=== PATIENT | male | born 1960 | race Two or more races ===

== ENCOUNTER 2021-08-03 09:31 | Outpatient (REF) | payer MEDICARE, MEDICAID, SELFPAY ==
--- NOTE | ~2021-08-03 | XR_ITS ---
EXAMINATION: XR chest 2V CLINICAL INFORMATION: Reason for Exam HX OF COPD, RLL LUNG COMPARISON: Chest radiograph 03/01/2015 TECHNIQUE: 2 views of the chest XR/XR chest 2V FINDINGS/IMPRESSION: * Clear lungs. * No pneumothorax or pleural effusion. * Normal cardiomediastinal silhouette.
== END 2021-08-03 09:32 | disposition home or self-care (01) ==
LOC: HO.XRAY 09:31
PROVIDERS: PCP Registered Nurse Community Health; Visit Provider Registered Nurse Community Health
DX: J44.9 Chronic obstructive pulmonary disease, unspecified (principal)
CPT/HCPCS: 71046

== ENCOUNTER 2021-10-26 12:34 | Outpatient (REF) | payer MEDICARE, MEDICAID, SELFPAY ==
--- NOTE | 2021-10-26 13:45 | PFT_ITS ---
INDICATION: COPD. SPIROMETRY: FEV1 to FVC 75% with an FEV1 of 2.04 L which is 88% predicted and an FVC of 4.06 L, which is 91% predicted. No significant response to bronchodilators noted. Maximum voluntary ventilation could not be achieved. LUNG VOLUMES: Total lung capacity 92% predicted. DIFFUSION CAPACITY: DLCO 75% predicted. COMPARISONS: None. INTERPRETATION: No obstructive nor restrictive ventilatory defects identified. No significant response to bronchodilators noted. Normal total lung capacity. Normal residual volume and the patient does have a mild isolated diffusion impairment should correct for hemoglobin. If asthma is in the differential, methacholine challenge may be helpful in assessing for hyper-reactive airways, otherwise clinical correlation warranted. Homero Mooney MD MR/MODL / [id number]
== END 2021-10-26 12:35 | disposition home or self-care (01) ==
LOC: HO.RESP 12:34
PROVIDERS: PCP Registered Nurse Community Health; Visit Provider Registered Nurse Community Health
DX: J44.9 Chronic obstructive pulmonary disease, unspecified (principal)
CPT/HCPCS: 94060; 94727; 94729

== ENCOUNTER 2023-05-03 08:19 | Outpatient (REF) | payer MEDICARE, MEDICAID, SELFPAY ==
[2023-05-03 12:15] LABS: Alanine Aminotransferase 17 U/L (0-40); Albumin Level 4.3 g/dL (3.5-5.0); Alkaline Phosphatase 73 U/L (39-117); Anion Gap 10 (12-20); Aspartate Amino Transferase 16 U/L (5-37); Bilirubin Total 0.4 mg/dL (0.0-1.0); Blood Urea Nitrogen 17 mg/dL (9-16); Calcium 9.6 mg/dL (8.4-10.2); Carbon Dioxide 24 mmol/L (22-29); Chloride 110 mmol/L (96-108); Cholesterol 176 mg/dL (<200); Estimated Glomerular Filt Rate > 60; Glucose Random 88 mg/dL (60-115); HDL Cholesterol 36 mg/dL (>40); LDL Cholesterol Calculated 120 mg/dL (<100); Potassium 4.2 mmol/L (3.3-5.1); Sodium 140 mmol/L (135-145); Total Protein 7.8 g/dL (6.5-8.0); Triglycerides 101 mg/dL (<150); ~Hepatitis C Antibody Reactive (Nonreactive)
[2023-05-03 12:16] LABS: TSH reflex Free T4 2.18 uIU/mL (0.32-4.0)
[2023-05-06 14:43] LABS: HCV Log PCR <1.18 NOT DETECTED Log IU/mL (NOT DETECTED); HepC Viral Load <15 NOT DETECTED IU/mL (NOT DETECTED)
[2023-05-06 16:34] LABS: HIV RNA PCR Qn Copies Not Detected Copies/mL; HIV RNA PCR Qn Log Copies Not Detected Log cps/mL
== END 2023-05-03 08:20 | disposition home or self-care (01) ==
LOC: HO.HHCL 08:19
PROVIDERS: Visit Provider Nurse Practitioner Family
DX: Z00.00 Encounter for general adult medical examination without abnormal findings (principal); R79.89 Other specified abnormal findings of blood chemistry; I10 Essential (primary) hypertension; Z71.3 Dietary counseling and surveillance
CPT/HCPCS: 36415; 80053; 80061; 84443; 86803; 87522; 87536; 87900

== ENCOUNTER 2023-06-12 08:28 | Outpatient (AMB) | payer MEDICARE, MEDICAID, SELFPAY ==
--- NOTE | 2023-06-12 08:38 | MHC.OFFVIS ---
Intake Vital Signs 06/12/23 08:41 Height 5 ft 9 in Weight 194 lb 0.108 oz BMI 28.6 BP 142/84 H Blood Pressure Location Lt brachial Position Sitting Pulse 51 Intake Visit Reasons: Colonoscopy screening Intake Note: Colin presents in the office as a new patient colonoscopy screening. CC: Does not have a list of medications with him. Allergies No Known Allergies [No Known Allergies*] Allergy (Unverified 06/12/23 08:41) Medication List - Last Reconciled 06/12/23 by Teri Melissa PA-C albuterol sulfate 2 mg PO TID cholecalciferol (vitamin D3) 50 mcg PO DAILY melatonin mg PO olanzapine 2.5 mg PO QDAY HPI HPI Comments History of Present Illness Details A 62 y/o hx polyps- 2019-adenomas Normal bowels Appetite good Taking medications for sleep only- Says pcp aware he dc'd- lisinopril, and antidepressants Quit smoking tob-1 1/2 years ago Smoke MJ No nausea, vomiting, hematemesis, hematochezia fever chills PFSH Medical History (Updated 06/12/23 @ 09:02 by Teri Melissa PA-C) History of hepatitis C History of colon polyps Surgical History (Updated 06/12/23 @ 10:50 by Teri Melissa PA-C) Hx of colonoscopy Social History (Updated 06/12/23 @ 09:02 by Teri Melissa PA-C) Household Members Other:: Alcohol intake: never Patient Tobacco Use Status: Former Tobacco user Substance Use Type: Marijuana Current occupational status: disabled Review of Systems Const All systems reviewed & are unremarkable except as noted in HPI and below Card Denies chest pain and Denies dyspnea Resp Denies dyspnea Physical Exam Vital Signs: Last Vital Signs Pulse 51 06/12/23 08:41 BP 142/84 H 06/12/23 08:41 BMI result Body Mass Index 28.6 Const General: cooperative, healthy appearing, comfortable, no acute distress and alert Orientation/consciousness: patient oriented x3 Limitations: no limitations Eyes Sclerae: sclerae normal Resp Effort & Inspection: normal respiratory effort and able to speak in complete sentences Auscultation: no rales, rhonchi and no wheezes Cardio Rate: regular rate Rhythm: regular rhythm Heart sounds: S1 normal heart sound present and S2 normal heart sound present GI Palpation (GI): Soft to palpation and nontender Auscultation: normal bowel sounds Skin General skin exam: no rashes or lesions noted Neuro General: patient oriented x3 Extrem General: Yes full ROM Psych Appearance: grossly normal and well kempt Mental Status: mental status grossly normal Speech and movement: Normal speech and movement present and Clear speech present Affect: normal affect Attitude: cooperative Thought process: Normal thought process present Thought content: Normal thought content present Assessment & Plan Assessment & Plan (1) Hx of colonoscopy: Comment: History of colon polyp Code(s): Z98.890 - Other specified postprocedural states Plan: polyp surveillance colonoscopy Plan polyp surveillance colonoscopy MG prep Orders: Orders Colonoscopy - GI Use Only Today Z98.890 - Other specified postprocedural states Medications: New polyethylene glycol 3350 (Miralax) Take as directed by mouth the day before your procedure. 238 grams PO ONCE PRN 238 grams 0RF laxative effect 1 day bisacodyl (Dulcolax (bisacodyl)) Day before procedure @ 12 noon Take 4 tablets by mouth followed by large glass of water 20 mg (4 x 5 mg) PO ONCE PRN 4 tabs 0RF colonoscopy prep 1 day Z12.11 - Encounter for screening for malignant neoplasm of colon Patient Instructions: Will be scheduled for polyp surveillance colonoscopy Discussed procedure, rare risks need for escorted due to anesthesia MiraLax Gatorade prep, reviewed literature Encouraged to call questions or concerns Coding Level of Care Code New Pt Level 3 (60489) Diagnoses Hx of colonoscopy Z98.890 Time Spent (min) 30
[2023-06-12 08:41] VITALS: BP 142/84; PULSE 51; BMI 28.6
== END 2023-06-12 09:38 | disposition home or self-care (01) ==
PROVIDERS: PCP Registered Nurse Community Health; Visit Provider Physician Assistant
DX: Z98.890 Other specified postprocedural states (principal)
CPT/HCPCS: 99203

== ENCOUNTER → 2023-06-12 08:28 | Outpatient (BNVA) | payer MEDICARE, MEDICAID, SELFPAY | PROVIDERS: PCP Registered Nurse Community Health; Visit Provider Physician Assistant | DX: Z98.890 Other specified postprocedural states (principal) | CPT/HCPCS: 99202 ==

== ENCOUNTER 2023-06-22 09:43 | Outpatient (AMB) | payer MEDICARE, MEDICAID, SELFPAY ==
--- NOTE | 2023-06-22 08:20 | A.OFFVIS_ITS ---
Intake Intake Visit Reasons: Former Smoker Allergies No Known Allergies [No Known Allergies*] Allergy (Unverified 06/12/23 08:41) HPI Former Smoker HPI Details Initial visit for this 62yo former smoker with a 40+PYH. Patient started smoking at age 14 for 46 years at 1ppd. He quit smoking in 2021. . Does report daily marijuana use. Notes second hand smoke exposure. smokes. Denies exposure to chemicals or substances like asbestos. . Reports family history of lung cancer. Mother at 72yo. Denies personal history of cancers. Denies chest CT in last year. . Denies recent travel outside the [place]. Denies recent respiratory illness or recent hospitalization for respiratory issues. Denies testing positive for COVID. Admits receiving COVID Vaccine. . Denies fever, chills, new/worsening cough, hemoptysis, hoarseness or dysphagia. Denies significant chest pain, significant dyspnea or unintentional weight loss. Patient Lung Cancer Screening Questionnaire reviewed with patient by provider. . Shared Decision Making Completed. Patient meets criteria. Discussed in detail with patient, the risk vs benefit of LDCT screening. Patient consents to proceed with scan. Discussed and encouraged continued smoking cessation. [facility] Medical History (Updated 06/22/23 @ 09:55 by Suad Hudson PA-C) History of hepatitis C History of colon polyps Personal history of nicotine dependence Surgical History (Updated 06/22/23 @ 09:51 by Suad Hudson PA-C) History of tonsillectomy History of colonoscopy Family History (Updated 06/22/23 @ 09:58 by Suad Hudson PA-C) Mother Lung cancer, Onset Age: 72 Social History (Updated 06/22/23 @ 09:56 by Suad Hudson PA-C) Household Members Other:: Alcohol intake: never Patient Tobacco Use Status: Former Tobacco user Years Smoked: onset 14yo, 1ppd x 46yrs - 40pyh - quit 2021 Substance Use Type: Marijuana Current occupational status: disabled Assessment & Plan Assessment & Plan (1) Personal history of nicotine dependence: Comment: (former smoker - onset 14yo, 1ppd x 46yrs - 40pyh - quit 2021) Code(s): Z87.891 - Personal history of nicotine dependence Plan: - SDM visit completed today in office. - Patient meets criteria for LDCT for lung cancer screening purposes and is asymptomatic. - Smoking cessation counseling offered. Patients can always call [phone]. - Will arrange for a LDCT scan of the chest for screening purposes at [facility]. - Risks, benefits, and alternatives were discussed in detail and the patient agrees to proceed. - Risks discussed include but are not limited to: radiation exposure, anxiety during testing and while awaiting results, false negatives, false positives and possibility of additional intervention such as further imaging or surgical procedures for benign disease. - Benefits are obviously detection of lung cancer at an early stage which can lead to improved outcomes. - Discussed the importance of screening program compliance with adherence to yearly LDCT scan as scheduled - or sooner interval scans for personalized screening regimen. - Discussed follow up plan. Our office will send a letter discussing results and if needed set up phone call and office visit based on CT findings. - Patient educated on results categorization and the management decisions for suspicious findings potentially found on the screening LDCT scan. Any patient with a Lung RADS score of 3 or 4 will be reviewed by a multidisciplinary team at [facility] to form a plan of action in regards to scan findings. - If further work up is warranted for a suspicious lung finding this will be followed by the Lung Cancer Screening program in conjunction with the Thoracic Surgery Department at [facility]. - A copy of the office note and LDCT will be sent to the patient's PCP - as well as documentation on any associated further plans of care. - Incidental findings on LDCT are the PCP's responsibility. These findings are indicated with an S finding on the LDCT Assessment. A note discussing the findings will be sent to the PCP who is then responsible for further management. - All questions answered.? Coding Level of Care Code Lung Cancer Screening G0296 Diagnoses Personal history of nicotine dependence Z87.891
== END 2023-06-22 09:54 | disposition home or self-care (01) ==
PROVIDERS: PCP Registered Nurse Community Health; Referring Provider Registered Nurse Community Health; Visit Provider Physician Assistant Medical
DX: Z87.891 Personal history of nicotine dependence (principal)
CPT/HCPCS: G0296

== ENCOUNTER 2023-06-22 09:56 | Outpatient (REF) | payer MEDICARE, MEDICAID, SELFPAY ==
--- NOTE | ~2023-06-22 | CT_ITS ---
EXAMINATION: CT CHEST SCREENING CLINICAL INFORMATION: Nicotine dependence. COMPARISON: None available. TECHNIQUE: Multidetector volumetric CT imaging of the chest is performed without contrast using low dose technique. Additional 2D coronal and sagittal reformatted images and axial 3D maximum intensity projection (MIP) images are generated on the CT workstation. This CT examination was performed using dose optimization techniques as appropriate, variously including the following: *Automated exposure control *Adjustment of mA and/or kV according to patient size (this includes techniques or standardized protocols for targeted exams where dose is matched to indication/reason for exam; i.e. extremities or head) *Use of iterative reconstruction technique DLP: 54 mGy-cm FINDINGS: LUNGS: Mild emphysematous changes are seen along with bronchial thickening. There are some areas of mucus plugging within bronchi (for example, right lower lobe 5:340). There is a 3 mm left upper lobe nodule abutting the mediastinum (5:106). There is a right lower lobe subpleural 3 mm nodule (5:341). Punctate calcified granuloma left upper lobe (5:153), and left lower lobe (5:329). No suspicious lung masses are seen to suggest malignancy. MEDIASTINUM: The mediastinum is normal. Tiny bit of mucus is present along the right side of the trachea. CORONARY ARTERY CALCIFICATION: Moderate. PLEURA: There is no pleural effusion. No pleural mass or thickening. AXILLA: No lymphadenopathy. UPPER ABDOMEN: There is a 2.0 x 1.8 x 0.5 cm right adrenal adenoma, which measures as low as 30 Hounsfield units and attenuation. This needs no additional imaging or follow up. OSSEOUS STRUCTURES: Unremarkable. CT/CT lung screening IMPRESSION: No evidence of malignancy. Benign-appearing lung nodules. Incidentally noted emphysema and benign right adrenal adenoma which needs no additional imaging or follow up. ASSESSMENT: Lung-RADS category 2: Benign RECOMMENDATION: Routine annual low-dose CT screening in 12 months.
== END 2023-06-22 09:57 | disposition home or self-care (01) ==
LOC: HO.CT 09:56
PROVIDERS: PCP Registered Nurse Community Health; Visit Provider Nurse Practitioner Family
DX: Z12.2 Encounter for screening for malignant neoplasm of respiratory organs (principal); F17.210 Nicotine dependence, cigarettes, uncomplicated
CPT/HCPCS: 71271; G0296

== ENCOUNTER 2023-09-27 09:52 | Day surgery (SDC) | payer MEDICARE, SELFPAY ==
--- NOTE | 2023-09-26 09:28 | HO.ANESPROP2 ---
Documented by User: Katie Porras NP 09/26/23 09:28 HPI - Anesthesia Eval Consult details Narrative: 63yo M for Colonoscopy [facility] Active Problems Active Problems: All Active Problems Personal history of nicotine dependence (Acute) Past Medical History Medical History (Updated 09/27/23 @ 10:44 by Angelica Cotto RN) Bradycardia Personal history of nicotine dependence History of hepatitis C History of colon polyps Family History Family History (Updated 06/22/23 @ 09:58 by Suad Hudson PA-C) Mother Lung cancer, Onset Age: 72 Surgical History Surgical History (Updated 06/22/23 @ 09:51 by Suad Hudson PA-C) History of tonsillectomy History of colonoscopy Social History Social History (Updated 06/22/23 @ 09:56 by Suad Hudson PA-C) Household Members Other:: Alcohol intake: never Patient Tobacco Use Status: Former Tobacco user Years Smoked: onset 14yo, 1ppd x 46yrs - 40pyh - quit 2021 Substance Use Type: Marijuana Are you DNR?: No Advance Directives: No Advance Directives Information Provided: Yes Nutrition Risks: No Nutritional Risk Current occupational status: disabled Meds Allergies Allergy/AdvReac Type Severity Reaction Status Date / Time No Known Allergies Allergy Verified 09/27/23 10:40 [No Known Allergies*] Home Medications ?Medication ?Instructions ?Recorded ?Confirmed ?Last Taken ?Type albuterol sulfate 2 mg/5 mL oral 2 mg PO TID 06/12/23 Unknown History syrup cholecalciferol (vitamin D3) 50 50 mcg PO DAILY 06/12/23 Unknown History mcg (2,000 unit) capsule melatonin 5 mg capsule mg PO 06/12/23 Unknown History olanzapine 2.5 mg tablet 2.5 mg PO QDAY 06/12/23 Unknown History Assessment and Plan Assessment Anesthesia Assessment: Chart Reviewed Documented by User: Sherry Turcios MD 09/27/23 11:48 [facility] Past Medical History Medical History (Updated 09/27/23 @ 10:44 by Angelica Cotto RN) Bradycardia Personal history of nicotine dependence History of hepatitis C History of colon polyps Family History Family History (Updated 06/22/23 @ 09:58 by Suad Hudson PA-C) Mother Lung cancer, Onset Age: 72 Family history of problems with anesthesia: No Surgical History Surgical History (Updated 06/22/23 @ 09:51 by Suad Hudson PA-C) History of tonsillectomy History of colonoscopy History of Problems with Anesthesia: No Social History Social History (Updated 06/22/23 @ 09:56 by Suad Hudson PA-C) Household Members Other:: Alcohol intake: never Patient Tobacco Use Status: Former Tobacco user Years Smoked: onset 14yo, 1ppd x 46yrs - 40pyh - quit 2021 Substance Use Type: Marijuana Are you DNR?: No Advance Directives: No Advance Directives Information Provided: Yes Nutrition Risks: No Nutritional Risk Current occupational status: disabled Meds Allergies Allergy/AdvReac Type Severity Reaction Status Date / Time No Known Allergies Allergy Verified 09/27/23 10:40 [No Known Allergies*] Home Medications ?Medication ?Instructions ?Recorded ?Confirmed ?Last Taken ?Type albuterol sulfate 2 mg/5 mL oral 2 mg PO TID 06/12/23 Unknown History syrup cholecalciferol (vitamin D3) 50 50 mcg PO DAILY 06/12/23 Unknown History mcg (2,000 unit) capsule melatonin 5 mg capsule mg PO 06/12/23 Unknown History olanzapine 2.5 mg tablet 2.5 mg PO QDAY 06/12/23 Unknown History Exam Airway Mallampati Class: II TM Dist: >3cm Neck ROM: Full Denture: Upper and Lower Assessment and Plan Assessment Anesthesia Assessment: Anesthesia Plan Discussed Final Anesthetic Review Family History of Problems with Anesthesia: No History of Problems with Anesthesia: No NPO: Yes ASA Class: II Final Preanesthetic Review: No Changes in Pt Med Stat, Meds/Allgs Chart Reviewed, Consent Obtained/Reviewed and Anes Risks/Benef Reviewed Patient Risk: Intermediate Procedure Risk: Low Anesthetic Plan Anesthetic Plan: TIVA Disposition: Standard PACU
[2023-09-27 10:29] VITALS: BP 127/67; PULSE 50; RESP 20; TEMP 36.9; O2SAT 96; BMI 27.4
[2023-09-27] MEDS: Lactated Ringers 1,000 ML 100 ML IVCONT (10:49)
--- NOTE | 2023-09-27 11:53 | MHC.SHP ---
Pre-Procedural Eval Section A - 24 Hr Update-Section A only Date of Service: 09/27/23 Section B - Complete if H&P > 30 days Chief Complaint: Encounter for screening for malignant neoplasm of Relevant Family History (Specify if Yes): No Relevant Social History: Tobacco Use Present Medications: see Short Stay Collaborative assessment Medical History: Significant History (History of hepatitis C History of colon polyps) History of Previous Operations: Relevant previous surgery/procedure and date(s) (colonoscopy) Allergies: Allergies Allergy/AdvReac Type Severity Reaction Status Date / Time No Known Allergies Allergy Verified 09/27/23 10:40 [No Known Allergies*] Review of Systems Sugical H&P ROS: Negative: Constitution, Cardiovascular, Respiratory, Neurological, Psychiatric, Hem-Onc, Allergic/Immunologic, Gastrointestinal, Genitourinary, Musculoskeletal, Integumentary, Endocrine and Eyes/Ears/Nose/Throat Exam Surgical H&P Exam: Normal: HEENT, Normal: Heart, Normal: Lungs, Normal: Extremities, Normal: Abdomen, Normal: Skin and Normal: Neurological Plan Diagnosis/Plan: Unchanged I have reviewed the history and physical and performed a pertinent physical examination on my patient. No changes have occurred unless specified. Time Spent With Patient Time: Total time managing care of this patient today ____ minutes.
--- NOTE | 2023-09-27 13:19 | HO.OPN-COLON ---
Colonoscopy Operative Note Operative Note Date of Service: 09/27/23 Narrative: Operative Information Procedure Description: Colonoscopy Indication: colon screening Anesthesia: MAC COLONOSCOPY Instrument: Olympus variable stiffness pediatric scope 190L Colonoscopy Monitoring: Vital signs and clinical assessment, continuous EKG monitoring, Pulse oximetry, Carbon Dioxide monitoring and blood pressure monitoring were done throughout the procedure. Colon withdrawal time was 15 minutes. Procedure: The patient was placed in the left lateral decubitis position and pre-procedure medications were administered. After a digital rectal examination of the ano-rectum, the video colonoscope was inserted into the rectum and advanced through the colon to the cecum/TI. The colonoscope was slowly withdrawn in a retrograde panoramic fashion and the colon mucosa was carefully examined including a retroflexed view of the rectum. Findings and interventions are described below. Procedure Difficulty: easy Findings: Terminal Ileum-normal Cecum: 10-12 mm flat polyp lifted with eleview and then removed with cold snare Ascending Colon: normal Transverse Colon -normal Descending Colon:normal Sigmoid Colon: normal Rectum: Retroflexion with small internal hemorrhoids seen, grade I, 5-7 mm sessile polyp removed with cold snare and 4-5 mm sessile polyp removed with cold forceps Anorectum - normal Intervention: cold snare with eleview injection and cold forceps Colon preparation: [place] Bowel Preparation Scale Right colon; 2 Transverse colon: 2 Left colon; 2 (0 = Unprepared colon segment with mucosa not seen due to solid stool that cannot be cleared. 1 = Portion of mucosa of the colon segment seen, but other areas of the colon segment not well seen due to staining, residual stool and/or opaque liquid. 2 = Minor amount of residual staining, small fragments of stool and/or opaque liquid, but mucosa of colon segment seen well. 3 = Entire mucosa of colon segment seen well with no residual staining, small fragments of stool or opaque liquid) Impression and Post Procedure Diagnosis: colon polyps internal hemorrhoids Plan: High fiber diet leaflet Avoid straining at stool, epsom salts and sitz bath, anusol supps or cream Repeat Colonoscopy in 3-5 years due to adenomatous appearing polyps or earlier if clinically indicated Above findings were reviewed with the patient and relevant handouts were provided if indicated.
[2023-09-27 14:00] VITALS: BP 145/79; PULSE 50; RESP 16; TEMP 36.1; O2SAT 97
[2023-09-27 14:15] VITALS: BP 148/80; PULSE 52; RESP 18; TEMP 36.9; O2SAT 100
== END 2023-09-27 14:55 | disposition home or self-care (01) ==
PROVIDERS: PCP Registered Nurse Community Health; Visit Provider Internal Medicine Gastroenterology
PROC: 0DJD8ZZ Inspection of Lower Intestinal Tract, Via Natural or Artificial Opening Endoscopic (ICD-10-PCS; CPT 45378; principal; 2023-09-27 13:40)
DX: Z12.11 Encounter for screening for malignant neoplasm of colon (principal); D12.0 Benign neoplasm of cecum; K64.0 First degree hemorrhoids; K62.1 Rectal polyp; Z86.010 Personal history of colon polyps; F12.90 Cannabis use, unspecified, uncomplicated; Z87.891 Personal history of nicotine dependence
CPT/HCPCS: 45385; 45381; 45380; 88305; J2704

== ENCOUNTER → 2023-09-27 09:52 | Outpatient (BNV) | payer MEDICARE, SELFPAY | PROVIDERS: PCP Registered Nurse Community Health; Visit Provider Internal Medicine Gastroenterology | DX: Z12.11 Encounter for screening for malignant neoplasm of colon (principal); D12.0 Benign neoplasm of cecum; K62.1 Rectal polyp; K64.0 First degree hemorrhoids | CPT/HCPCS: 45380; 45381; 45385 ==

== ENCOUNTER 2024-02-12 11:27 | Outpatient (REF) | payer MEDICARE, SELFPAY ==
[2024-02-12 13:40] LABS: Anion Gap 12 (12-20); Blood Urea Nitrogen 15 mg/dL (9-16); Calcium 9.5 mg/dL (8.4-10.2); Carbon Dioxide 23 mmol/L (22-29); Chloride 106 mmol/L (96-108); Estimated Glomerular Filt Rate > 60; Glucose Random 92 mg/dL (60-115); Sodium 137 mmol/L (135-145)
[2024-02-12 13:48] LABS: Vitamin D 25-OH Total 48.5 ng/mL (>30)
[2024-02-12 14:00] LABS: Folate 9.2 ng/mL (> or = 4.0); Vitamin B12 556 pg/mL (200-900)
[2024-02-12 14:28] LABS: Creatinine Urine 119.78 mg/dL; Microalbumin Urine < 5.0 mg/L
== END 2024-02-12 11:28 | disposition home or self-care (01) ==
LOC: HO.HHCL 11:27
PROVIDERS: Visit Provider Nurse Practitioner
DX: I10 Essential (primary) hypertension (principal); E55.9 Vitamin D deficiency, unspecified; Z86.2 Personal history of diseases of the blood and blood-forming organs and certain disorders involving the immune mechanism
CPT/HCPCS: 36415; 80048; 82043; 82306; 82570; 82607; 82746

== ENCOUNTER 2024-06-20 13:19 | Outpatient (REF) | payer MEDICARE, MEDICAID, SELFPAY ==
[2024-06-20 17:06] LABS: Prostate Specific Antigen Scr 1.21 ng/mL (<0.05-4.0)
== END 2024-06-20 13:20 | disposition home or self-care (01) ==
LOC: HO.HHCL 13:19
PROVIDERS: Visit Provider Nurse Practitioner
DX: R35.0 Frequency of micturition (principal); Z12.5 Encounter for screening for malignant neoplasm of prostate
CPT/HCPCS: 36415; 84153

== ENCOUNTER 2025-01-16 14:43 | Outpatient (REF) | payer MEDICARE, MEDICAID, SELFPAY ==
--- NOTE | ~2025-01-16 | XR_ITS ---
EXAMINATION: XR FOOT 3 OR MORE VIEWS RIGHT HISTORY: right heel pain COMPARISON: There are no prior studies available for comparison. FINDINGS: Three views of the right foot are submitted. Osseous mineralization is normal. There is no fracture or dislocation. The joint spaces are preserved. There are calcaneal spurs at the plantar aspect and at the insertion of the Achilles tendon. The soft tissues are unremarkable. XR/XR foot RT min 3V IMPRESSION: Calcaneal spurs as described. Otherwise unremarkable examination of the right foot. Electronically signed by: Irvin Lassiter MD 01/16/2025 03:44 PM EDT
--- OUTSIDE RECORDS SUMMARY | 2025-01-16 14:20 | XMS_ITS | Encounter Summary ---
Author Organization [employer] Address [address] [facility] [address] [place] [address] Care Team Providers Care Forger Helper Name Role Phone Dalila Kolb NP Primary Care Provider [phone] Alexandre, Megan OD Unavailable [phone] Reason for Referral * Consultation (Routine) - Pending Review Specialty Diagnoses / Procedures Referred By Contac t Referred To Contact Urology Diagnoses Benign prostatic hyperplasia with urinary hesitancy Marisela Link NP [address] [place] [address] Phone: tel: fax: Referral ID Status Reason Start Date Expiration Date Visits Requested Visits Authorized [id number] Pending Review Specialty Services Required 01/16/2026 1 1 * Consultation (Routine) - Pending Review Specialty Diagnoses / Procedures Referred By Contac t Referred To Contact Orthopaedic Surgery Diagnoses Chronic heel pain, unspecified laterality Marisela Link NP [address] [place] [address] Phone: tel: fax: Referral ID Status Reason Start Date Expiration Date Visits Requested Visits Authorized [id number] Pending Review Specialty Services Required 01/16/2026 1 1 Reason for Visit * Reason Comments Foot Pain Encounter Details Date Type Department Care Team (Late st Contact Info) Description 01/16/2025 2:20 PM EDT Office Visit [facility] [address] [place] [id number] Chronic heel pain, unspecified laterality (Primary Dx); Essential hypertension; Primary hypertension; Benign prostatic hyperplasia with urinary hesitancy Social History Tobacco Use Types Packs/Day Years Used Date Smoking Tobacco: Former Cigarettes Smokeless Tobacco: Never Tobacco Cessation:Counseling Given: Not Answered Comments:Smoked 1.5 years ago, smoked a minimum pack a day x 48 years Alcohol Use Standard Drinks/Week Comments Not Currently 0 (1 standard drink = 0.6 oz pur e alcohol) no drinks x 10 years Depression Answer Date Recorded Patient Health Questionnaire-9 Score 7 02/12/2024 Patient Health Questionnaire-9 Score 7 02/12/2024 Last PHQ-9: Questionnaire Data Not on file 1 04/13/2023 Housing Stability Answer Date Recorded What is your housing situation today? I have elizabeth moran 06/20/[address] you li ve. Do you have problems with any of the following? None of the above 06/20/2024 Food Insecurity Answer Date Recorded Within the past 12 months, y ou worried that your food would run out before you got money to buy more: Sometimes True 2024 Within the past 12 months,th e food you bought just didn't last and you didn't have enough money to get more: Often true 06/20/2024 Transportation Answer Date Recorded In the past 12 months, has l ack of transportation kept you from medical appts, meetings, work or from getting things needed for daily living? No 06/20/2024 Utilities Answer Date Recorded In the past 12 months, has t he electric, gas, oil or water company threatened to shut off services in your home? No 06/20/2024 Depression Answer Date Recorded Patient Health Questionnaire-2 Score 1 02/12/2024 Internet Access Answer Date Recorded Internet Access Q1 Yes 06/20/2024 Internet Access Q2 Not on file 06/20/2024 Sex and Gender Information Value Date Recorded Sex Assigned at Male 01/16/2022 10:28 AM EDT Legal Sex Male 10:28 AM EDT Gender Identity Male 01/16/2022 10:28 AM EDT Sexual Orientation Straight 01/16/2022 10 :28 AM EDT documented as of this encounter Last Filed Vital Signs Vital Sign Reading Time Taken Comments Blood Pressure 160/88 01/16/2025 1:57 PM EDT Pulse 60 01/16/2025 1:57 PM EDT Temperature 36.4 C (97.5 F) 01/16/2025 1:57 PM EDT Respiratory Rate 16 01/16/2025 1:57 PM EDT Oxygen Saturation - - Inhaled Oxygen Concentration - - Weight 80 kg (176 lb 6.4 oz) 01/16/2025 1:57 PM EDT Height 175.3 cm (5' 9 ) 01/16/2025 1:57 PM EDT Body Mass Index 26.05 01/16/2025 1:57 PM EDT documented in this encounter Miscellaneous Notes * Assessment & Plan Note - Marisela Link NP - 01/16/2025 2:20 PM EDTAssociated Problem(s): Chronic heel pain Orders: XR Foot 3+ Views Right; Future Referral to Orthopaedic Surgery; Future * Assessment & Plan Note - Marisela Link NP - 01/16/2025 2:20 PM EDTAssociated Problem(s): Essential hypertension * Assessment & Plan Note - Marisela Link NP - 01/16/2025 2:20 PM EDTAssociated Problem(s): Primary hypertension Orders: lisinopril 10 MG tablet; TAKE 1 TABLET BY MOUTH EVERY DAY * Assessment & Plan Note - Marisela Link NP - 01/16/2025 2:20 PM EDTAssociated Problem(s): Benign prostatic hyperplasia with urinary hesitancy Orders: PSA, Total With Reflex to PSA, Free; Future Referral to Urology; Future CBC auto differential; Future documented in this encounter Plan of Treatment Scheduled Orders Name Type Priority Associated Diagnoses Orde r Schedule XR Foot 3+ Views Right Imaging Routine Chronic heel pain, unspecified laterality Expected: 01/16/2025, Expires: 01/16/2026 PSA, Total With Reflex to PSA, Free Lab Routine Benign prostatic hyperplasia with urinary hesitancy Expected: 01/16/2025 (Approximate), Expires: 01/16/2026 CBC auto differential Lab Routine Benign prostatic hyperplasia with urinary hesitancy Expected: 01/16/2025 (Approximate), Expires: 01/16/2026 Scheduled Referrals Name Type Priority Associated Diagnoses Orde r Schedule Referral to Orthopaedic Surgery Outpatient Referral Routine Chronic heel pain, unspecified laterality Expected: 01/16/2025 (Approximate), Expires: 01/16/2026 Referral to Urology Outpatient Referral Routine Benign prostatic hyperplasia with urinary hesitancy Expected: 01/16/2025 (Approximate), Expires: 01/16/2026 documented as of this encounter Visit Diagnoses Diagnosis Chronic heel pain, unspecified laterality- Primary Essential hypertension Unspecified essential hypertension Primary hypertension Unspecified essential hypertension Benign prostatic hyperplasia with urinary hesitancy documented in this encounter Additional Health Concerns Assessment Noted Time PHQ-9 Depression Total Score: 7 02/12/20 24 10:37 AM EST documented as of this encounter Care Teams Forger Helper Relationship Specialty Start Date End Date Dalila Kolb NP [address] [place] [address] PCP - General Family Medicine 11/20/23 Liyah Schroeder OD [address] [place] [address] Optometry 12/12/23 documented as of this encounter
--- OUTSIDE RECORDS SUMMARY | 2025-01-16 15:11 | XMS_ITS | Encounter Summary ---
Author Organization [employer] Address [address] [facility] [address] [place] [address] Care Team Providers Care Stave Cutter Name Role Phone Cortes Dalila DARLING Primary Care Provider [phone] Cj Schroedern OD Unavailable [phone] Encounter Details Date Type Department Care Team (Latest Contact Info) Description 01/16/2025 Travel Social History Tobacco Use Types Packs/Day Years Used Date Smoking Tobacco: Former Cigarettes Smokeless Tobacco: Never Comments:Smoked 1.5 years ag o, smoked a minimum pack a day x [...] AM EDT documented as of this encounter Plan of Treatment Not on file documented as of this encounter Visit Diagnoses Not on filedocumented in this encounter Additional Health Concerns Assessment Noted Time PHQ-9 Depression Total Score: 7 02/12/20 24 10:37 AM EST documented as of this encounter Care Teams Stave Cutter Relationship Specialty Start Date End Date Dalila Kolb NP [address] [place] [address] PCP - General Family Medicine 11/20/23 Liyah Schroeder OD [address] [place] [address] Optometry 12/12/23 documented as of this encounter
--- OUTSIDE RECORDS SUMMARY | 2025-01-16 15:11 | XMS_ITS | Patient Health Record ---
Author Organization [facility] Address [address] [place] [address] Care Team Providers Care Store Operations Specialist Name Role Phone Justin Buenrostro MD Primary Care Provider ALFREDO Atwood Unavailable [phone] Reason For Referral No Information Medications Medication SIG (Take, Route, Frequency, Duration) Notes Start Date End Date Status Omeprazole 40 MG Capsule Delayed Release 1 capsule Orally Once a day ac breakfast; Duration: 30 day(s) 08/03/2014 Not-Taking/PRN Aspirin 81 MG Tablet Chewable 1 tablet Orally Once a day Not-Taking/PRN Omeprazole 40 MG Capsule Delayed Release 1 capsule Orally Once a day; Duration: 90 days 09/03/2014 Not-Taking/PRN Harvoni 90-400 MG Tablet 1 tablet Orally Once a day Active SEROquel 100 MG Tablet 1 tablet at bedti me Orally Once a day Active Ranitidine HCl 150 MG Capsule 1 capsule Orally Twice a day Not-Taking/PRN Nulytely with Flavor Packs 420 GM Solution Reconstituted Start at 11am day before test. Orally Drink one 8oz glass of solution every 15 minutes till is done 04/22/2014 Not-Taking/ PRN Magnesium Citrate 1.745 GM/30ML Solution Drink solution at 11pm night of before test Orally 04/22/2014 Not-Taking/PRN Dulcolax 5 MG Tablet Delayed Release Take 4 tablets at 7pm day before test Orally 04/22/2014 Not-Taking/PRN Immunizations Vaccine Route Administration Date Status Comme nts Pneumococcal Unknown 11/17/2013 Administered Social History Social History Drugs/Alcohol: Social Info Question Answer Notes Drugs Have you used drugs other than those for medical reasons in the past 12 months? No Tobacco Use: Social Info Question Answer Notes Tobacco use other than smoking: Are you an other tobac co user? No Problems Problem Type SNOMED Code ICD Code Onset Dates Problem Status W/U Status Risk Notes Problem Chronic hepatitis C (237653341) Hepatitis C Chronic (070.54) Active confirmed Problem Gastritis (535.40) Active confirmed Problem Esophagitis (29092848) Esophagitis Erosive (530.19) Active confirmed Problem Disorder of function of stomach (268271941) Dyspepsia and other specified disorders of function of stomach (536.8) Active confirmed Problem Epigastric pain (53142548) Abdominal pain, epigastric (789.06) Active confirmed Problem Screening for malignant neoplasm of colon (426937507) Special screening for malignant neoplasms, intestine, unspecified (V76.50) Active confirmed Problem Hepatitis C (65931490) Hepatitis C (B19.20) Active confirmed Plan Of Treatment Pending Test Test Name Order Date CBC With Differential/Platelet - IH 11/17 CBC With Differential/Platelet - IH 11/17 Hepatic Function Panel (7) - IH 11/27/19 15 Hepatic Function Panel (7) - IH 12/04/19 15 COLONOSCOPY AT THE HOSPITAL 04/09/2014 HCV RT-PCR, Quant (Non-Graph) 11/26/2014 HCV RT-PCR, Quant (Non-Graph) 12/03/2014 Future Test Test Name Order Date Hepatitis C GENOTYPE 01/15/2014 Hepatitis C RNA QUANTITATIVE 01/15/2014 AFP, Serum, Tumor Marker 01/15/2014 CBC With Differential/Platelet 4 HP5 01/15/2014 Comp. Metabolic Panel (14) 01/15/2014 CT Scan : Biopsy Liver 04/09/2014 Insurance Providers Payer Name Payer Address Payer Phone Subscriber Number Group Number Insured Name Patient Relationship to Insured Coverage Start Date Coverage End Date MEDICARE [address] MEDICARE B KADIE CHINO [id number] [phone] [id number] MELINDA GRIFFIN Self - patient is the insured [place] [address] [place] [address] [id number] MELINDA GRIFFIN Self - patient is the insured Medical (General) History Medical History History ICD Code depression Hep C Surgical History Surgery Date(Month/Year) tonsillectomy (youth) vesciectomy Hospitalization History Reason Date(Month/Year) heart problem 11/2013
--- OUTSIDE RECORDS SUMMARY | 2025-01-16 15:11 | XMS_ITS | Clinical Summary ---
Author Organization [employer] Address [address] [facility] [address] [place] [address] Care Team Providers Care Harbor Engineer Name Role Phone Dalila Kolb NP Primary Care Provider [phone] Alexandre, Liyah OD Unavailable [phone] Allergies No known active allergies Medications mirtazapine (Remeron) 45 MG tabletIndicatio ns:Major depression with psychotic features (CMS/HCC) (HCC) Take 1 tablet (45 mg) by mouth at bedtime. 90 tablet 3 06/19/19 24 Active Additional Information Patient not taking.Reported on 12/22/2024 cholecalciferol (D3 Super Strength) 50 MCG (2000 UT) capsule TAKE 1 CAPSULE BY MOUTH EVERY DAY 90 capsule 1 09/17/19 24 Active Additional Information Patient not taking.Reported on 12/22/2024 cyanocobalamin (Vitamin B-12) 1000 MCG tablet TAKE 1 TABLET BY MOUTH EVERY DAY IN THE MORNING 90 tablet 1 09/17/19 24 Active Additional Information Patient not taking.Reported on 12/22/2024 albuterol (Ventolin HFA) 108 (90 Base) MCG/ACT inhaler INHALE 2 PUFFS BY MOUTH EVERY 4 HOURS NEEDED 18 g 02/12/20 24 Active Additional Information Patient not taking.Reported on 12/22/2024 Potassium 99 MG tablet Take by mouth. Activ e Turmeric (QC Tumeric Complex) 500 MG capsule Take by mouth. Activ e magnesium 30 MG tablet Take 30 mg by mouth 2 times daily. 330 mg on and off Active Multiple Vitamin (multivitamin) tablet Take 1 tablet by mouth Once per day. Active ELDERBERRY PO Take 50 mg by mouth. Active Melatonin 3 MG capsule Take 9 mg by mouth. Active Blood Pressure kitIndications: Elevated blood pressure reading in office with diagnosis of hypertension 1 each 2 times daily. 1 kit 06/21/19 25 2025 Active Additional Information Patient not taking.Reported on 12/22/2024 lisinopril 10 MG tabletIndicatio ns:Primary hypertension TAKE 1 TABLET BY MOUTH EVERY DAY 90 tablet 1 01/17/20 25 Active tamsulosin (Flomax) 0.4 MG 24 hr capsule Take 1 capsule (0.4 mg) by mouth Once per day. 30 capsule 01/17/20 25 Active lisinopril 10 MG tabletIndicatio ns:Primary hypertension TAKE 1 TABLET BY MOUTH EVERY DAY 90 tablet 1 12/10/19 24 2024 Discontinued(R eorder (will not trigger notification to Pharmacy)) Active Problems Problem Noted Date Diagnosed Date Primary hypertension 01/16/2025 Assessment & Plan (01/16/2025 2:35 PM EDT): Orders: lisinopril 10 MG tablet; TAKE 1 TABLET BY MOUTH EVERY DAY Benign prostatic hyperplasia with urinary hesita ncy 01/16/2025 Assessment & Plan (01/16/2025 2:35 PM EDT): Orders: PSA, Total With Reflex to PSA, Free; Future Referral to Urology; Future CBC auto differential; Future Chronic heel pain 01/16/2025 Assessment & Plan (01/16/2025 2:35 PM EDT): Orders: XR Foot 3+ Views Right; Future Referral to Orthopaedic Surgery; Future Disorder of function of stomach 12/15/2024 Encounter for screening for malignant neoplasm o f colon 12/15/2024 Epigastric pain 12/15/2024 Esophagitis 12/15/2024 Hepatitis C 12/15/2024 Essential hypertension 02/11/2024 Assessment & Plan (01/16/2025 2:35 PM EDT): Chronic obstructive lung disease 02/11/2024 Vitamin D deficiency 02/11/2024 Major depression with psychotic features (CMS/HC C) 03/28/2022 Assessment & Plan (06/19/2023 9:15 AM EDT): In durable remission. Has been off Olanzapine 2.5 mg without recurrence of hallucinations or destabilizing mood. Will continue Bupropion XL 150 mg daily, Mirtazapine 45 mg at bedtime. No counseling and not interested in referral. As this provider will be retiring, he will follow up with his PCP for continued psychiatric medication management. He should call [facility] with any questions or concerns. I have wished him well. He agrees with the plan. Assessment & Plan (04/23/2023 3:16 PM EST): In durable remission. Will try without the Olanzapine 2.5 mg for a couple of weeks. If experiences worsened or unstable mood or hallucinations will resume. Continue Bupropion XL 150 mg daily, Mirtazapine 45 mg at bedtime. No counseling and not interested in referral. Today 04/23/2023 provider informed the patient that I would be retiring, but that we would plan for smooth transition of care. F/u with me in 2 months. He agrees with the plan. Assessment & Plan (09/26/2022 9:41 AM EDT): In durable remission. Will decrease to Bupropion XL 150 mg daily. Continue Olanzapine 2.5 mg at bedtime, Mirtazapine 45 mg at bedtime. F/u with me in 3 months. He agrees with the plan. Assessment & Plan (06/27/2022 12:38 PM EDT): In durable remission. Continue medications as usual. F/u with me in 3 months. He agrees with the plan. Assessment & Plan (03/28/2022 9:19 AM EST): In durable remission. At this time will decrease to Zyprexa 2.5 mg at bedtime. Continue other medications as usual. F/u with me in 2-3 months. He agrees with the plan. Severe recurrent major depression (CMS/HCC) 06/17 Encounters Date Type Department Care Team Description 01/16/2025 2:20 PM EDT Office Visit [facility] [address] [address] Chronic heel pain, unspecified laterality (Primary Dx); Essential hypertension; Primary hypertension; Benign prostatic hyperplasia with urinary hesitancy 01/16/2025 Travel 01/02/2025 1:30 PM EDT Office Visit [facility] ADULT DENTAL [address] [place] [address] Prateek Griffith DMD 12/30/[address] [facility] MEDICINE [address] [place] [phone] Dalila Kolb NP [employer] 12/22/2024 2:30 PM EDT Office Visit [facility] [address] [place] [address] Prateek Griffith DMD 12/15/2024 10:00 AM EDT Office Visit [facility] [address] [place] [phone] Prateek Griffith DMD 11/27/2024 2:00 PM EDT Office Visit [facility] [address] [place] [phone] Prateek Griffith DMD 10/28/2024 3:00 PM EDT Office Visit [facility] [address] [place] [phone] Prateek Griffith DMD from Last 3 Months Immunizations Immunization Administration Dates Next Due Hep A, Adult 12/19/2018,03/26/2015 Hep B, adult 12/23/2015,05/07/2015,03/26/2015 Influenza injectable quadriv alent IIV4 with preservative 12/23/2015,02/04/2015 Influenza injectable quadriv alent preservative free 12/19/2018,02/28/2018,01/03/2017 Td (adult), 5 Lf tetanus tox oid, preservative free, adsorbed 12/08/2015 Tdap 02/28/2018 Family History Medical History Relation Name Comments Lung cancer Mother Relation Name Status Comments Mother Social History Tobacco Use Types Packs/Day Years [...] Orientation Straight 01/16/2022 10 :28 AM EDT Last Filed Vital Signs Vital Sign Reading Time Taken Comments Blood Pressure 160/88 01/16/2025 1:57 PM EDT Pulse 60 01/16/2025 1:57 PM EDT Temperature 36.4 C (97.5 F) 01/16/2025 1:57 PM EDT Respiratory Rate 16 01/16/2025 1:57 PM EDT Oxygen Saturation 95% 06/27/2024 9:44 AM EDT Inhaled Oxygen Concentration - - Weight 80 kg (176 lb 6.4 oz) 01/16/2025 1:57 PM EDT Height 175.3 cm (5' 9 ) 01/16/2025 1:57 PM EDT Body Mass Index 26.05 01/16/2025 1:57 PM EDT Plan of Treatment Health Maintenance Due Date Last Done Comments CT Colonography 1958 Colonoscopy 1958 Colorectal Cancer Screening 1958 Dental Prophylaxis 1958 Dental X-Ray: Bitewings 1958 FIT DNA/Cologuard 1958 FIT 1958 FOBT 1958 Sigmoidoscopy 1958 Zoster Vaccines (1 of 2) 2008 Pneumococcal Vaccine: 50+ Years (2 of 2 - PCV) 11/17/2014 11/17/2013 RSV Patients and Patients Aged 60 years or older (1 - Risk 60-74 years 1-dose series) 2018 COVID-19 Vaccine (2 - season) 2024 08/19/2020 Influenza Vaccine (#1) 2024 9, 02/28/2018, 01/03/2017, Additional history exists Depression Screening 02/11/2025 02/12/2024, 02/12/20 24 Dental Oral Exam 05/01/2025 10/28/2024, 04/08/2015 Alcohol/Substance Use Screening 06/20/2025 06/20/2024 SDOH Screening 06/20/2025 06/20/2024 Tobacco Screening 01/16/2026 01/16/2025 Dental X-Ray: Full Mouth 10/30/2027 10/28/2024, 03/20 Lipid Panel 05/03/2028 05/03/2023, 07/05/2021 DTaP/Tdap/Td Vaccines (3 - Td or Tdap) 09/14/2034 09/14/2024, 02/28/2018, 12/08/2015 Hepatitis B Vaccines Completed 12/23/2015, 05/07/2015, 03/26/2015 Hepatitis A Vaccines Completed 12/19/2018, 03/26/19 16 HIB Vaccines Aged Out No longer eligi ble based on patient's age to complete this topic HPV Vaccines Aged Out No longer eligi ble based on patient's age to complete this topic IPV Vaccines Aged Out No longer eligi ble based on patient's age to complete this topic Meningococcal B Vaccine Aged Out No l onger eligible based on patient's age to complete this topic Meningococcal Vaccine Aged Out No kenyetta panchito eligible based on patient's age to complete this topic RSV under 20 months Aged Out No longe r eligible based on patient's age to complete this topic Rotavirus Vaccines Aged Out No longer eligible based on patient's age to complete this topic Procedures Procedure Name Priority Date/Time Associated Diagnosis Comments CASE PRESENTATION, DETAILED AND EXTENSIVE TREATMENT PLANNING Routine 01/02/2025 1:30 PM EDT Jose Carlos COMPLETE DENTURE - MANDIBULAR Routine 01/02/2025 1:30 PM EDT Max COMPLETE DENTURE - MAXILLARY Routine 01/02/2025 1:30 PM EDT WAX TRY IN Routine 12/22/2024 2:30 PM EDT DENTURE IMPRESSION Routine 12/15/2024 10 :00 AM EDT BITE REGISTRATION Routine 12/15/2024 10: 00 AM EDT DENTURE IMPRESSION Routine 11/27/2024 2: 00 PM EDT CASE PRESENTATION, DETAILED AND EXTENSIVE TREATMENT PLANNING Routine 10/28/2024 3:00 PM EDT PANORAMIC RADIOGRAPHIC IMAGE Routine 10/28/2024 3:00 PM EDT PERIODIC ORAL EVALUATION - ESTABLISHED PATIENT Routine 10/28/2024 3:00 PM EDT LIPID PANEL, STANDARD Routine 05/03/2023 8:20 AM EST Hypertension, unspecified type Dietary counseling from Last 3 Months or Most Recently Relevant to Health Maintenance Results * (ABNORMAL) Lipid Panel, Standard (05/03/2023 8:20 AM EST) Triglycerides 101 <150 mg/dL [facility] Comment:Desirable Triglyceri de: less than 150 mg/dLBorderline High Triglyceride 150-199 mg/dLHigh Triglyceride: 200-499 mg/dLVery High Triglyceride: greater than or equal to 5OO mg/dL Cholesterol 176 <200 mg/dL [facility] Comment:Desirable Cholestero l: less than 200 mg/dLBorderline High Cholesterol: 200-239 mg/dLHigh Cholesterol: greater than 239 mg/dL LDL Cholesterol Calculated 120(H) <100 mg/dL [facility] Comment:Desirable LDL: less than 100 mg/dLNear Optimal/Above Optimal LDL: 110- 129 mg/dLBorderline High LDL: 130-159 mg/dLHigh LDL: 160-189 mg/dLVery High LDL: greater than or equal to 190 mg/dL HDL Cholesterol 36(L) >40 mg/dL [facility] Comment:Desirable HDL: great er than 40 mg/dL Note: This HDL assay may give artificially low results in patients with liver disease. Blood Venous blood specimen / Unknown 05/03/2023 8:20 AM EST 05/03/2023 11:15 AM EST us Mary Rob METROLOGY TECHNICIAN LAB BLOOD ORDERABLES Final Resu lt [facility] [address] [place] [address] [phone] from Last 3 Months or Most Recently Relevant to Health [place] [id number] [facility] STANDARD D[facility] STAND ADULT Care Teams Harbor Engineer Relationship Specialty Start Date End Date Dalila Kolb NP [address] [place] [address] PCP - General Family Medicine 11/20/23 Liyah Schroeder OD [address] [place] [address] Optometry 12/12/23
--- OUTSIDE RECORDS SUMMARY | 2025-01-16 15:11 | XMS_ITS | Encounter Summary ---
Author Organization [employer] Address [address] [facility] [address] [place] [address] Care Team Providers Care Service Correspondent Name Role Phone Mary Rob Primary Care Provider [phone] Dalila Kolb NP Primary Care Provider [phone] Liyah Schroeder OD Unavailable [phone] Reason for Visit * Reason Comments Med Refill Encounter Details Date Type Department Care Team (Late st Contact Info) Description 10/12/2022 Refill [facility] MED & PEDS [address] [place], [place] [phone] Saurabh Irizarry FNP Major depression with psychotic features (CMS/HCC) Social History Tobacco Use Types Packs/Day Years Used Date Smoking Tobacco: Never Assessed Depression Answer Date Recorded Patient Health Questionnaire-9 Score 1 09/26/2022 Depression Answer Date Recorded Patient Health Questionnaire-2 Score 0 09/26/2022 Sex and Gender Information Value Date Recorded Sex Assigned at Male 01/16/2022 10:28 AM EDT Legal Sex Male 10:28 AM EDT Gender Identity Male 01/16/2022 10:28 AM EDT Sexual Orientation Straight 01/16/2022 10 :28 AM EDT documented as of this encounter Plan of Treatment Not on file documented as of this encounter Visit Diagnoses Diagnosis Major depression with psychotic features (CMS/HCC) (HCC) documented in this encounter Additional Health Concerns Assessment Noted Time PHQ-9 Depression Total Score: 1 09/27/19 23 9:14 AM EDT documented as of this encounter Care Teams Service Correspondent Relationship Specialty Start Date End Date Mary Rob FNP [address] [place] [address] PCP - General Family Medicine 10/16/22 11/19/23 Dalila Kolb NP [address] [place] [address] PCP - General Family Medicine 11/20/23 Liyah Schroeder OD [address] [place], [place] [phone] Optometry 12/12/23 documented as of this encounter
--- OUTSIDE RECORDS SUMMARY | 2025-01-16 15:11 | XMS_ITS | Encounter Summary ---
Author Organization [employer] Address [address] [facility] 7t [place] [address] Care Team Providers Care Powerhouse Mechanic Name Role Phone Makeda Gaspar Jerrica SALES MERCHANDISING SPECIALIST Primary Care Provider Ellen Mary Melendez SALES MERCHANDISING SPECIALIST Primary Care Provider [phone] Dalila Kolb BROADCAST SYSTEMS ENGINEER Primary Care Provider [phone] Liyah Schroeder OD Unavailable [phone] Encounter Details Date Type Department Care Team (Late st Contact Info) Description 07/24/2022 Orders Only [facility] MED & PEDS [address] [place] [address] Cecelia Lopes LPN Social History Tobacco Use Types Packs/Day Years Used Date Smoking Tobacco: Never Assessed PHQ-2 Answer Date Recorded Patient Health Questionnaire-2 Score 0 03/28/2022 Sex and Gender Information Value Date Recorded Sex Assigned at Male 01/16/2022 10:28 AM EDT Legal Sex Male 10:28 AM EDT Gender Identity Male 01/16/2022 10:28 AM EDT Sexual Orientation Straight 01/16/2022 10 :28 AM EDT documented as of this encounter Plan of Treatment Not on file documented as of this encounter Procedures Procedure Name Priority Date/Time Associated Diagnosis Comments HEPATITIS C VIRAL RNA, QUANTITATIVE, REAL-TIME PCR Routine 05/03/2023 8:20 AM EST documented in this encounter Results * Hepatitis C Viral RNA, Quantitative, Real-Time PCR (05/03/2023 8:20 AM EST) Hepatitis C Viral Load <15 NOT DETECTED NOT DETECTED IU/mL [facility] HCV Log PCR <1.18 NOT DETECTED NOT DETECTED Log IU/mL [facility] Comment:This test was perfor med using [employer].Reportable Range: 15 IU/mL to 100,000,000 IU/mL(1.18 Log IU/mL to 8.00 Log IU/mL).The analytical performance characteristics of thisassay have been determined by [employer].The modifications have not been cleared or approved bythe FDA. This assay has been validated pursuant to theCLIA regulations and is used for clinical purposes.For more information on this test, go to:http://education.Juxinli/faq/YIE20p3(This link is being provided for informational/educational purposes only.)THIS TEST WAS PERFORMED AT:[email or web address] [place] [id number] BEGUM MD 05/03/2023 8:20 AM EST 05/03/2023 12:17 PM EST Mary PE[facility] BLOOD ORDERABLES Final Resu lt [facility] [address] [place] [address] [phone] documented in this encounter Visit Diagnoses Not on filedocumented in this encounter Care Teams Powerhouse Mechanic Relationship Specialty Start Date End Date Makeda Gaspar FNP PCP - General Family Medicine 11/15/21 08/21/22 Mary Rob FNP [address] [place] [address] PCP - General Family Medicine 10/16/22 11/19/23 Dalila Kolb NP [address] [place] [phone] PCP - General Family Medicine 11/20/23 Liyah Schroeder OD [address] [place] [id number] Optometry 12/12/23 documented as of this encounter
--- OUTSIDE RECORDS SUMMARY | 2025-01-16 15:11 | XMS_ITS | Encounter Summary ---
Author Organization [employer] Address [address] [facility] 7[address] [place] [address] Care Team Providers Care Paper Box Maker Name Role Phone Mary Rob Primary Care Provider [phone] Dalila Kolb NP Primary Care Provider [phone] Liyah Schroeder OD Unavailable [phone] Reason for Visit * Reason Comments Med Refill Encounter Details Date Type Department Care Team (Late st Contact Info) Description 04/22/2023 Refill [facility] MED & PEDS [address] [place] [address] Saurabh Irizarry FNP Major depression with psychotic features (CMS/HCC) Social History Tobacco Use Types Packs/Day Years Used Date Smoking Tobacco: Never Assessed Depression Answer Date Recorded Patient Health Questionnaire-9 Score 0 04/23/2023 Patient Health Questionnaire-9 Score 0 04/23/2023 Last PHQ-9: Questionnaire Data Not on file 0 04/23/2023 Housing Stability Answer Date Recorded What is your housing situation today? I have elizabeth moran 04/23/[address] you li ve. Do you have problems with any of the following? None of the above 04/23/2023 Food Insecurity Answer Date Recorded Within the past 12 months, y ou worried that your food would run out before you got money to buy more: Never True 04/23/2023 Within the past 12 months,th e food you bought just didn't last and you didn't have enough money to get more: Never True 07/2023 Transportation Answer Date Recorded In the past 12 months, has l ack of transportation kept you from medical appts, meetings, work or from getting things needed for daily living? No 04/23/2023 Utilities Answer Date Recorded In the past 12 months, has t he electric, gas, oil or water company threatened to shut off services in your home? No 04/23/2023 Depression Answer Date Recorded Patient Health Questionnaire-2 Score 0 04/23/2023 Sex and Gender Information Value Date Recorded Sex Assigned at Male 01/16/2022 10:28 AM EDT Legal Sex Male 10:28 AM EDT Gender Identity Male 01/16/2022 10:28 AM EDT Sexual Orientation Straight 01/16/2022 10 :28 AM EDT documented as of this encounter Functional Status * Over the past 2 weeks, how often have you been bothered by any of the following problems? Question Answer Date of Assessment Author Patient Health Questionnaire -2 Score 0 04/23/2023 2:56 PM Yasmine Rogers MA * Over the past 2 weeks, how often have you been bothered by any of the following problems? Question Answer Date of Assessment Author Little interest or pleasure in doing things Not at all 04/23/2023 2:56 PM Yasmine Rogers [place] Feeling down, depressed, or hopeless Not at all 04/23/2023 2:56 PM Yasmine Rogers [place] Trouble falling or staying asleep, or sleeping too much Not at all 04/23/2023 2:56 PM Colette Rogers MA Feeling tired or having little energy Not at all 04/23/2023 2:56 PM Yasmine Rogers MA Poor appetite or overeating Not at all 04/23/2023 2: 56 PM Colette Rogers MA Feeling bad about yourself - or that you are a failure or have let yourself or your family down Not at all 04/23/2023 2:56 PM Yasmine Rogers MA Trouble concentrating on things, such as reading the newspaper or watching television Not at all 04/23/2023 2:56 PM Yasmine Rogers MA Moving or speaking so slowly that other people could have noticed? Or the opposite - being so fidgety or restless that you have been moving around a lot more than usual. Not at all 04/23/2023 2:56 PM Colette Rogers MA Thoughts that you would be better off or hurting yourself in some way Not at all 04/23/2023 2:56 PM Crow Rogers MA Patient Health Questionnaire-9 Score 0 04/23/2023 2:56 PM Viry Rogers MA documented as of this encounter Plan of Treatment Not on file documented as of this encounter Visit Diagnoses Diagnosis Major depression with psychotic features (CMS/HCC) (HCC) documented in this encounter Additional Health Concerns Assessment Noted Time PHQ-9 Depression Total Score: 1 09/27/19 23 9:14 AM EDT documented as of this encounter Care Teams Paper Box Maker Relationship Specialty Start Date End Date Mary Rob FNP [address] [place] [address] PCP - General Family Medicine 10/16/22 11/19/23 Dalila Kolb NP [address] [place] [address] PCP - General Family Medicine 11/20/23 Liyah Schroeder OD [address] [place] [address] Optometry 12/12/23 documented as of this encounter
--- OUTSIDE RECORDS SUMMARY | 2025-01-16 15:11 | XMS_ITS | Encounter Summary ---
Author Organization [employer] Address [address] [facility] 7t [place] [address] Care Team Providers Care Container Washer Machine Name Role Phone Mary Rob Primary Care Provider [phone] Dalila Kolb NP Primary Care Provider [phone] Liyah Schroeder OD Unavailable Reason for Referral * Consultation (Routine) - Closed Specialty Diagnoses / Procedures Referred By Cortney castillo Referred To Contact Cardiothoracic Surgery Diagnoses History of tobacco use disorder Mary Rob FNP [address] [place] [address] Phone: tel: fax: [address] Phone: tel: fax: Referral ID Status Reason Start Date Expiration Date V isits Requested Visits Authorized [id number] Closed Specialty Services Required 05/16/2023 05/15/2024 1 1 Encounter Details Date Type Department Care Team (Late st Contact Info) Description 05/16/2023 Orders Only [facility] MED & PEDS [address] [place] [address] Mary Rob FNP [address] [place] [address] History of tobacco use disorder (Primary Dx) Social History Tobacco Use Types Packs/Day Years Used Date Smoking Tobacco: Former Cigarettes Smokeless Tobacco: Never Comments:Smoked 1.5 years ag o, smoked a minimum pack a day x 48 years Alcohol Use Standard Drinks/Week Comments Not Currently 0 (1 standard drink = 0.6 oz pur e alcohol) no drinks x 10 years Depression Answer Date Recorded Patient Health Questionnaire-9 Score 0 04/30/2023 Patient Health Questionnaire-9 Score 0 04/30/2023 Last PHQ-9: Questionnaire Data Not on file 0 04/30/2023 Housing Stability Answer Date Recorded What is [...] Date Recorded Patient Health Questionnaire-2 Score 0 04/30/2023 Sex and Gender Information Value Date Recorded Sex Assigned at Male 01/16/2022 10:28 AM EDT Legal Sex Male 10:28 AM EDT Gender Identity Male 01/16/2022 10:28 AM EDT Sexual Orientation Straight 01/16/2022 10 :28 AM EDT documented as of this encounter Plan of Treatment Scheduled Referrals Name Type Priority Associated Diagnoses Order Schedule Referral to Cardiothoracic Surgery Outpatient Referral Routine History of tobacco use disorder Expected: 05/16/2023 (Approximate), Expires: 05/16/2024 documented as of this encounter Visit Diagnoses Diagnosis History of tobacco use disorder- Primary documented in this encounter Additional Health Concerns Assessment Noted Time PHQ-9 Depression Total Score: 0 04/30/19 24 11:32 AM EST documented as of this encounter Care Teams Container Washer Machine Relationship Specialty Start Date End Date Mary Rob FNP [address] [place], [place] [phone] PCP - General Family Medicine 10/16/22 11/19/23 Dalila Kolb NP [address] [place], [place] [phone] PCP - General Family Medicine 11/20/23 Liyah Schroeder OD [address] [place], [place] [phone] Optometry 12/12/23 documented as of this encounter
--- OUTSIDE RECORDS SUMMARY | 2025-01-16 15:11 | XMS_ITS | Encounter Summary ---
Author Organization [employer] Address [address] [facility] 7t [place] [address] Care Team Providers Care Warp Knitter Name Role Phone Mary Rob Primary Care Provider [phone] Dalila Kolb NP Primary Care Provider [phone] Liyah Schroeder OD Unavailable [phone] Reason for Visit * Reason Comments Med Refill Encounter Details Date Type Department Care Team (Late st Contact Info) Description 04/19/2023 Refill [facility] MED & PEDS [address] [place] [address] Saurabh Irizarry FNP Major depression with psychotic [...] documented as of this encounter Care Teams Warp Knitter Relationship Specialty Start Date End Date Mary Rob FNP [address] [place] [address] PCP - General Family Medicine 10/16/22 11/19/23 Dalila Kolb NP [address] [place] [address] PCP - General Family Medicine 11/20/23 Liyah Schroeder OD [address] [place] [address] Optometry 12/12/23 documented as of this encounter
[2025-01-16 16:07] LABS: MANUAL DIFF FLAG NO
[2025-01-16 16:11] LABS: Hematocrit 44.3 % (42.0-52.0); Hemoglobin 14.7 g/dl (14.0-18.0); Imm Gran Abs Auto 0.02 X10*3/uL (0.00-0.03); Imm Gran Pct Auto 0.2 % (0.0-0.4); Lymphocytes Absolute Auto 2.7 X10*3/uL (1.2-4.9); Mean Corpuscular HGB Conc 33.2 g/dl (31.0-36.0); Mean Corpuscular Hemoglobin 29.3 pg (27.0-33.0); Mean Corpuscular Volume 88.2 fL (80.0-98.0); NRBC Abs Auto 0.000 X10*3/uL (0.0-0.012); NRBC Pct Auto 0.0 /100WBC (0.0-0.2); Platelet Count 191 X10*3/uL (160-400); Red Blood Count 5.02 X10*6/uL (4.60-5.80); White Blood Count 8.8 X10*3/uL (4.8-10.8)
[2025-01-16 16:46] LABS: PSA,Total (Free>4and<10) 1.64 ng/mL (0.00-4.00)
== END 2025-01-16 14:44 | disposition home or self-care (01) ==
LOC: HO.HHCX 14:43
PROVIDERS: PCP Nurse Practitioner Family; Visit Provider Nurse Practitioner Family
DX: Z12.5 Encounter for screening for malignant neoplasm of prostate (principal); M79.672 Pain in left foot; R39.11 Hesitancy of micturition; G89.29 Other chronic pain; N40.1 Benign prostatic hyperplasia with lower urinary tract symptoms
CPT/HCPCS: 36415; 73630; 84153; 85025

== ENCOUNTER → 2025-01-16 14:56 | Outpatient (BNV) | payer MEDICARE, MEDICAID, SELFPAY | PROVIDERS: PCP Nurse Practitioner Family; Visit Provider Radiology Diagnostic Radiology | DX: M77.31 Calcaneal spur, right foot (principal) | CPT/HCPCS: 73630 ==

== ENCOUNTER 2025-02-16 12:50 | Outpatient (AMB) | payer MEDICARE, MEDICAID, SELFPAY ==
[2025-02-16 13:33] VITALS: BMI 25.8
--- NOTE | 2025-02-16 13:33 | A.OFFVIS_ITS ---
Vital Signs 02/16/25 13:33 Height 5 ft 9 in Weight 175 lb BMI 25.8 Intake Visit Reasons: Chronic Heel pain Intake Note: Colin is a 64 year old male who presents today as a new patient for an evaluation of his right heel pain. Patient reports the pain has been going on for about 1 year and he has not tried any previous treatment. Imaging was taken on 01/16/25 of his right foot and results are all set in patientc chart. Right foot X-ray IMPRESSION: Calcaneal spurs as described. Otherwise unremarkable examination of the right foot. Allergies No Known Allergies (No Known Allergies*) Allergy (Verified 09/27/23 10:40) HPI HPI Chronic Heel pain: Details: 64 y/o male seen today for initial evaluation of right heel pain. He describes it as a sharp pain that is worst to his heel first step in the morning. Denies any radiation to his leg/calf or his arch. He has not tried any treatment so far. He is using a cane to aid in ambulation due to the heel pain. He also thinks he is walking differently which is affecting his right hip. [facility] Medical History (Updated 02/16/25 @ 21:43 by Ben Alvarez DPM) Bradycardia Personal history of nicotine dependence History of hepatitis C History of colon polyps Surgical History (Updated 06/22/23 @ 09:51 by Suad Hudson PA-C) History of tonsillectomy History of colonoscopy Family History (Updated 06/22/23 @ 09:58 by Suad Hudson PA-C) Mother Lung cancer, Onset Age: 72 Social History (Updated 06/22/23 @ 09:56 by Suad Hudson PA-C) Household Members Other:: Alcohol intake: never Patient Tobacco Use Status: Former Tobacco user Years Smoked: onset 14yo, 1ppd x 46yrs - 40pyh - quit 2021 Substance Use Type: Marijuana Current occupational status: disabled Review of Systems Const All systems reviewed & are unremarkable except as noted in HPI and below Physical Exam Vital Signs: BMI result Body Mass Index 25.8 Extrem Other: *Bilateral Lower Extremity Focused Exam Vascular: DP/PT 2/4, CFT<3s to digits, TG warm to cool, no pedal edema Derm: No open wounds or lacerations. Neuro: Protective sensation grossly intact to bilateral lower extremities. MSK: Moderate Tenderness on palpation of the plantar medial calcaneal tubercle right heel, No Tenderness on palpation along the distal insertion of the Achilles tendon, 0 Degrees of ankle dorsiflexion on knee extension, 3-4 degrees of ankle d orsiflexion on knee flexion. Office Procedures AMB Flexor Tendon/Plantar POD Tendon Injection Details of AMB Procedure: Procedure: Steroid injection Location: right heel Medication: 1.5cc 0.5% bupivicaine, 1cc dexamethasone, 0.5cc kenalog? Description: The right heel was prepped using alcohol. A steroid injection was administered using sterile technique. The site was dressed using a band-aid. Post-procedure Instructions: The patient was instructed to apply ice to the injection site. The patient was advised to call the office if there are signs or symptoms of worsening pain, infection, or steroid flare. Tendon Injection POD1: - Plantar Fascia Injection All charges added?: Procedure code (CPT) selection complete Office Meds triamcinolone acetonide 40 mg/mL suspension for injection Performing Provider: Ben Alvarez DPM Performing Location: [facility] Administered by: Ben Alvarez DPM on 02/16/25 21:46 Dose Route Admin Location Dispensed Lot Number Expiration Date [facility] Skilled Nursing Case Manager 20 mg Tendon Sheath Inj. 1 mL [id number] [employer] Total Dispensed Waste 1 mL 50 % dexamethasone sodium phosphate 4 mg/mL injection solution Performing Provider: Ben Alvarez DPM Performing Location: [facility] Administered by: Ben Alvarez DPM on 02/16/25 21:46 Dose Route Admin Location Dispensed Lot Number Expiration Date [facility] Skilled Nursing Case Manager 4 mg Tendon Sheath Inj. 1 mL [id number] [employer] Total Dispensed Waste 1 mL 0 % bupivacaine (PF) 0.5 % (5 mg/mL) injection solution Performing Provider: Ben Alvarez DPM Performing Location: [facility] Administered by: Ben Alvarez DPM on 02/16/25 21:46 Dose Route Admin Location Dispensed Lot Number Expiration Date [facility] Skilled Nursing Case Manager 2 mL intra-articular 10 mL [id number] [employer] Total Dispensed Waste 10 mL 80 % Results Reviewed Results Reviewed: X-ray Read: 01/16/2025 X-ray right foot 3 views (AP, MO, Lateral) reviewed which shows mild plantar insertional calcaneal spur. Mild Achilles insertional spur. I personally reviewed the imaging and my findings are listed above. Assessment & Plan Assessment & Plan (1) Plantar fasciitis of right foot: Code(s): M72.2 - Plantar fascial fibromatosis Category: Medical Plan: * Discussed etiology of the patient's foot pain. Differential diagnosis includes plantar fasciitis, neuritis, tendinitis. * Patient educated on the nature and etiology of plantar fasciitis, which involves inflammation and microtearing of the plantar fascia due to repetitive stress and overuse. * Reviewed right foot x-rays * The patient was counseled on conservative management of plantar fasciitis, including daily stretching exercises targeting the plantar fascia and Achilles tendon, use of supportive and properly fitting footwear (HOKA/New Balance shoes), and consideration of custom or prefabricated orthotics to improve foot biomechanics. * Instructed the patient on home stretching and range of motion exercises including calf-stretches, frozen water bottle therapy, band-therapy. A hand- out was dispensed. * Administered steroid injection to the right heel today. * Rx Meloxicam * Follow up in 3 weeks Orders: Orders AMB Flexor Tendon / Plantar Fascia Injection Today M72.2 - Plantar fascial fibromatosis Medications: New meloxicam Take one tablet once a day for right heel pain 15 mg PO DAILY 14 tabs 0RF foot pain Coding Level of Care Code New Pt Level 4 (58834) Diagnoses Plantar fasciitis of right foot M72.2 CPT Codes Tendon Injection - Tendon Injection POD1: - Plantar Fascia Injection ([id number])
--- OUTSIDE RECORDS SUMMARY | 2025-02-16 16:25 | XMS_ITS | Encounter Summary ---
Author Organization [employer] Address [address] [facility] 7t [place] [address] Care Team Providers Care Power And Recovery Supervisor Name Role Phone Mary Rob Primary Care Provider [phone] Dalila Kolb NP Primary Care Provider [phone] Liyah Schroeder OD Unavailable Reason for Referral * Consultation (Routine) - Closed Specialty Diagnoses / Procedures Referred By Cortney castillo Referred To Contact Cardiothoracic Surgery Diagnoses History of tobacco use disorder Mary Rob FNP [address] [place] [address] Phone: tel: fax: [facility] [address] [place] [phone] Phone: tel: fax: Referral ID Status Reason Start Date Expiration Date V isits Requested Visits Authorized [id number] Closed Specialty Services Required 05/16/2023 05/15/2024 1 1 Encounter Details Date Type Department Care Team (Late st Contact Info) Description 05/16/2023 Orders Only [facility] MED & PEDS [address] [place] [address] Mary Rob FNP [address] [place] [address] History of tobacco use disorder (Primary Dx) [...] as of this encounter Plan of Treatment Upcoming Encounters Date Type Department Care Team (Late st Contact Info) Description 03/18/2025 2:30 PM EST Office Visit [facility] MEDICINE [address] [place] [address] Dalila Kolb NP [address] [place] [address] Scheduled Referrals Name Type Priority Associated Diagnoses [...] documented as of this encounter Care Teams Power And Recovery Supervisor Relationship Specialty Start Date End Date Mary Rob FNP [address] [place] [address] PCP - General Family Medicine 10/16/22 11/19/23 Dalila Kolb NP [address] [place] [address] PCP - General Family Medicine 11/20/23 Liyah Schroeder OD [address] [place] [address] Optometry 12/12/23 documented as of this encounter
--- OUTSIDE RECORDS SUMMARY | 2025-02-16 16:25 | XMS_ITS | Encounter Summary ---
Author Organization [employer] Address [address] [facility] [address] [place] [address] Care Team Providers Care Surveillance Investigator Name Role Phone Makeda Gaspar AUTOMOTIVE ASSEMBLER Primary Care Provider Ellen Mary Melendez AUTOMOTIVE ASSEMBLER Primary Care Provider [phone] Dalila Kolb NP Primary Care Provider [phone] Liyah Schroeder OD Unavailable Encounter Details Date Type Department Care Team (Late st Contact Info) Description 07/24/2022 Orders Only [facility] MED & PEDS [address] [place] [address] Cecelia Lopes LPN Social History Tobacco Use [...] Description 03/18/2025 2:30 PM EST Office Visit [facility] MEDICINE [address] [place] [address] Dalila Kolb NP [address] [place] [address] documented as of this encounter Procedures Procedure Name Priority Date/Time Associated Diagnosis Comments HEPATITIS C VIRAL RNA, QUANTITATIVE, REAL-TIME PCR Routine 05/03/2023 8:20 AM EST documented in this encounter Results * Hepatitis C Viral RNA, Quantitative, Real-Time PCR (05/03/2023 8:20 AM EST) Hepatitis C Viral Load <15 NOT DETECTED NOT DETECTED IU/mL [facility] HCV Log PCR <1.18 NOT DETECTED NOT DETECTED Log IU/mL [facility] Comment:This test was perfor med using Real-Time Polymerase ChainReaction.Reportable Range: 15 IU/mL to 100,000,000 IU/mL(1.18 Log IU/mL to 8.00 Log IU/mL).The analytical performance characteristics of thisassay have been determined by [employer].The modifications have not been cleared or approved bythe FDA. This assay has been validated pursuant to theCLIA regulations and is used for clinical purposes.For more information on this test, go to:http://education.[employer]/faq/AEQ59c7(This link is being provided for informational/educational purposes only.)THIS TEST WAS PERFORMED AT:[employer] [place] [phone] BEGUM MD 05/03/2023 8:20 AM EST 05/03/2023 12:17 PM EST us Mary PEÑALOZA LAB BLOOD ORDERABLES Final Resu lt [facility] [address] [place] [phone] documented in this encounter Visit Diagnoses Not on filedocumented in this encounter Care Teams Surveillance Investigator Relationship Specialty Start Date End Date Makeda Gaspar FNP PCP - General Family Medicine 11/15/21 08/21/22 Mary Rob FNP [address] [place] [address] PCP - General Family Medicine 10/16/22 11/19/23 Dalila Kolb NP [address] [place], [place] [phone] PCP - General Family Medicine 11/20/23 Liyah Schroeder OD [address] [place] [address] Optometry 12/12/23 documented as of this encounter
--- OUTSIDE RECORDS SUMMARY | 2025-02-16 16:25 | XMS_ITS | Encounter Summary ---
Author Organization [employer] Address [address] [facility] [address] [place] [address] Care Team Providers Care Quality Control Lab Technician Name Role Phone Mary Rob Primary Care Provider [phone] Dalila Kolb NP Primary Care Provider [phone] Liyah Schroeder OD Unavailable [phone] Reason for Visit * Reason Comments Med Refill Encounter Details Date Type Department Care Team (Late st Contact Info) Description 04/22/2023 Refill [facility] MED & PEDS [address] [place] [address] Saurabh Irizarry FNP Major depression with psychotic [...] way Not at all 04/23/2023 2:56 PM EST Crow Garrison [place] Patient Health Questionnaire-9 Score 0 04/23/2023 2:56 PM EST Viry Garrison [place] documented as of this encounter Plan of Treatment Upcoming Encounters Date Type Department Care Team (Late st Contact Info) Description 03/18/2025 2:30 PM EST Office Visit [facility] MEDICINE [address] [place] [address] Dalila Kolb NP [address] [place] [address] documented as of this encounter Visit Diagnoses Diagnosis Major depression with psychotic features (CMS/HCC) (HCC) documented in this encounter Additional Health Concerns Assessment Noted Time PHQ-9 Depression Total Score: 1 09/27/19 23 9:14 AM EDT documented as of this encounter Care Teams Quality Control Lab Technician Relationship Specialty Start Date End Date Mary Rob FNP [address] [place] [address] PCP - General Family Medicine 10/16/22 11/19/23 Dalila Kolb NP [address] [place] [address] PCP - General Family Medicine 11/20/23 Liyah Schroeder OD [address] [place] [address] Optometry 12/12/23 documented as of this encounter
--- OUTSIDE RECORDS SUMMARY | 2025-02-16 16:25 | XMS_ITS | Encounter Summary ---
Author Organization [employer] Address [address] [facility] [address] [place] [address] Care Team Providers Care Coding Assistant Name Role Phone Mary Rob Primary Care Provider [phone] Dalila Kolb NP Primary Care Provider [phone] Liyah Schroeder OD Unavailable [phone] Reason for Visit * Reason Comments Med Refill Encounter Details Date Type Department Care Team (Late st Contact Info) Description 10/12/2022 Refill [facility] MED & PEDS [address] [place] [address] Saurabh Irizarry FNP Major depression with psychotic [...] Encounters Date Type Department Care Team (Late Contact Info) Description 03/18/2025 2:30 PM EST Office Visit [facility] MEDICINE [address] [place] [address] Dalila Kolb NP [address] [place], [place] [phone] documented as of this encounter Visit Diagnoses Diagnosis Major depression with psychotic features (CMS/HCC) (HCC) documented in this encounter Additional Health Concerns Assessment Noted Time PHQ-9 Depression Total Score: 1 09/27/19 23 9:14 AM EDT documented as of this encounter Care Teams Coding Assistant Relationship Specialty Start Date End Date Mary Rob FNP [address] [place] [address] PCP - General Family Medicine 10/16/22 11/19/23 Dalila Kolb NP [address] [place] [address] PCP - General Family Medicine 11/20/23 Liyah Schroeder OD [address] [place] [address] Optometry 12/12/23 documented as of this encounter
--- OUTSIDE RECORDS SUMMARY | 2025-02-16 16:25 | XMS_ITS | Encounter Summary ---
Author Organization [employer] Address [address] [facility] 7[address] [place] [address] Care Team Providers Care Machine Repairer Maintenance Name Role Phone Mary Rob Primary Care Provider [phone] Dalila Kolb NP Primary Care Provider [phone] Liyah Schroeder OD Unavailable [phone] Reason for Visit * Reason Comments Med Refill Encounter Details Date Type Department Care Team (Late st Contact Info) Description 04/19/2023 Refill [facility] MED & PEDS [address] [place] [address] Saurabh Irizarry FNP Major depression with psychotic [...] Description 03/18/2025 2:30 PM EST Office Visit [facility] MEDICINE [address] [place] [address] Dalila Kolb NP [address] [place] [address] documented as of this encounter Visit Diagnoses Diagnosis Major depression with psychotic features (CMS/HCC) (HCC) documented in this encounter Additional Health Concerns Assessment Noted Time PHQ-9 Depression Total Score: 1 09/27/19 23 9:14 AM EDT documented as of this encounter Care Teams Machine Repairer Maintenance Relationship Specialty Start Date End Date Mary Rob FNP [address] [place] [address] PCP - General Family Medicine 10/16/22 11/19/23 Dalila Kolb NP [address] [place] [address] PCP - General Family Medicine 11/20/23 Liyah Schroeder OD [address] [place] [address] Optometry 12/12/23 documented as of this encounter
--- OUTSIDE RECORDS SUMMARY | 2025-02-16 16:25 | XMS_ITS | Clinical Summary ---
Author Organization [employer] Address [address] [facility] [address] [place] [address] Care Team Providers Care National Park Ranger Name Role Phone Dalila Kolb NP Primary Care Provider [phone] Alexandre Liyah OD Unavailable [phone] Allergies No known active allergies Medications mirtazapine (Remeron) 45 MG tabletIndication s:Major depression with psychotic features (CMS/HCC) (HCC) Take 1 tablet (45 mg) by mouth at bedtime. 90 tablet 3 4 Active Additional Information Patient not taking.Reported on 12/22/2024 cholecalciferol (D3 Super Strength) 50 MCG (2000 UT) capsule TAKE 1 CAPSULE BY MOUTH EVERY DAY 90 capsule 1 4 Active Additional Information Patient not taking.Reported on 12/22/2024 cyanocobalamin (Vitamin B-12) 1000 MCG tablet TAKE 1 TABLET BY MOUTH EVERY DAY IN THE MORNING 90 tablet 1 4 Active Additional Information Patient not taking.Reported on 12/22/2024 albuterol (Ventolin HFA) 108 (90 Base) MCG/ACT inhaler INHALE 2 PUFFS BY MOUTH EVERY 4 HOURS NEEDED 18 g 4 Active Additional Information Patient not taking.Reported on 12/22/2024 Potassium 99 MG tablet Take by mouth. Activ e Turmeric (QC Tumeric Complex) 500 MG capsule Take by mouth. Active magnesium 30 MG tablet Take 30 mg by mouth 2 times daily. 330 mg on and off Active Multiple Vitamin (multivitamin) tablet Take 1 tablet by mouth Once per day. Active ELDERBERRY PO Take 50 mg by mouth. Active Melatonin 3 MG capsule Take 9 mg by mouth. Active Blood Pressure kitIndications:E levated blood pressure reading in office with diagnosis of hypertension 1 each 2 times daily. 1 kit 5 06/21/19 26 Active Additional Information Patient not taking.Reported on 12/22/2024 lisinopril 10 MG tabletIndication s:Primary hypertension TAKE 1 TABLET BY MOUTH EVERY DAY 90 tablet 1 5 Active tamsulosin (Flomax) 0.4 MG 24 hr capsule Take 1 capsule (0.4 mg) by mouth Once per day. 30 capsule 5 Active Active Problems Problem Noted Date Diagnosed Date Primary hypertension 01/16/2025 Assessment & Plan (01/16/2025 4:32 PM EDT): Orders: lisinopril 10 MG tablet; TAKE 1 TABLET BY MOUTH EVERY DAY Benign prostatic hyperplasia with urinary hesita ncy 01/16/2025 Assessment & Plan (01/16/2025 4:32 PM EDT): Orders: PSA, Total With Reflex to PSA, Free; Future Referral to Urology; Future CBC auto differential; Future Chronic heel pain 01/16/2025 Assessment & Plan (01/16/2025 4:32 PM EDT): Orders: XR Foot 3+ Views Right; Future Referral to Orthopaedic Surgery; Future Disorder of function of stomach 12/15/2024 Encounter for screening for malignant neoplasm o f colon 12/15/2024 Epigastric pain 12/15/2024 Esophagitis 12/15/2024 Hepatitis C 12/15/2024 Essential hypertension 02/11/2024 Assessment & Plan (01/16/2025 4:32 PM EDT): Chronic obstructive lung disease 02/11/2024 [...] continued psychiatric medication management. He should call [facility] with any questions or concerns. I have [...] with the plan. Severe recurrent major depression (CMS/[facility]) 06/17 Encounters Date Type Department Care Team Description 01/29/2025 2:00 PM EST Office Visit [facility] ADULT DENTAL [address] [place] [address] Prateek Griffith DMD 01/22/2025 Telephone [facility] MEDICINE [address] [place] [address] Dalila Kolb NP february01/21/2025 Results Follow-Up [facility] MEDICINE [address] [place] [phone] Nalini Wolf, GISELE XR Foot 3+ Views Right 01/16/2025 2:20 PM EDT Office Visit [facility] [address] [place] [address] Marisela Link NP Chronic heel pain, unspecified laterality (Primary Dx); Essential hypertension; Primary hypertension; Benign prostatic hyperplasia with urinary hesitancy 01/16/2025 Travel 01/02/2025 1:30 PM EDT Office Visit [facility] ADULT DENTAL [address] [place] [address] Prateek Griffith DMD 12/30/2024 Telephone [facility] MEDICINE [address] [place] [address] Dalila Kolb NP [employer] 12/22/2024 2:30 PM EDT Office Visit [facility] ADULT DENTAL [address] [place] [address] Prateek Griffith DMD 12/15/2024 10:00 AM EDT Office Visit [facility] AD[facility] DENT[facility] [address] [place] [address] Prateek Griffith DMD 11/27/2024 2:00 PM EDT Office Visit [facility] [address] [place] [address] Prateek Griffith DMD from Last 3 Months [...] 01/16/2025 1:57 PM EDT Plan of Treatment Upcoming Encounters Date Type Department Care Team (Late st Contact Info) Description 03/18/2025 2:30 PM EST Office Visit [facility] MEDICINE [address] [place] [address] Dalila Kolb NP [address] [place] [address] Health Maintenance Due Date Last Done Comments CT Colonography 1960 Dental Prophylaxis 1960 Dental X-Ray: Bitewings 1958 FIT DNA/Cologuard 1958 FIT 1960 FOBT 1960 Sigmoidoscopy 1960 RSV Patients and Patients Aged 60 years or older (1 - Risk 50-74 years 1-dose series) 2008 Zoster Vaccines (1 of 2) 2008 Pneumococcal Vaccine: 50+ Years (2 of 2 - PCV) 11/17/2014 11/17/2013 COVID-19 Vaccine (2 - season) 2024 08/19/2020 Influenza Vaccine (#1) 2024 9, 02/28/2018, 01/03/2017, Additional history exists Depression Screening 02/11/2025 02/12/2024, 02/12/20 24 Dental Oral Exam 05/01/2025 10/28/2024, 04/08/2015 Alcohol/Substance Use Screening 06/20/2025 06/20/2024 SDOH Screening 06/20/2025 06/20/2024 Tobacco Screening 01/29/2026 01/29/2025 Dental X-Ray: Full Mouth 10/30/2027 10/28/2024, 03/20 Lipid Panel 05/03/2028 05/03/2023, 07/05/2021 Colonoscopy 09/26/2033 09/27/2023 Colorectal Cancer Screening 09/26/2033 DTaP/Tdap/Td Vaccines (3 - Td or Tdap) [...] Procedure Name Priority Date/Time Associated Diagnosis Comments DENTURE ADJUSTMENT Routine 01/29/2025 2: 00 PM EST XR FOOT 3+ VIEWS RIGHT Routine 01/16/2025 3:30 PM EDT Chronic heel pain, unspecified laterality CBC WITH AUTO DIFFERENTIAL Routine 01/16/2025 2:49 PM EDT Benign prostatic hyperplasia with urinary hesitancy PSA, TOTAL WITH REFLEX TO PSA, FREE Routine 01/16/2025 2:49 PM EDT Benign prostatic hyperplasia with urinary hesitancy CASE PRESENTATION, DETAILED AND EXTENSIVE TREATMENT PLANNING [...] IMPRESSION Routine 11/27/2024 2: 00 PM EDT PANORAMIC RADIOGRAPHIC IMAGE Routine 10/28/2024 3:00 PM EDT PERIODIC ORAL EVALUATION - ESTABLISHED PATIENT Routine 10/28/2024 3:00 PM EDT LIPID PANEL, STANDARD Routine 05/03/2023 8:20 AM EST Hypertension, unspecified type Dietary counseling from Last 3 Months or Most Recently Relevant to Health Maintenance Results * XR Foot 3+ Views Right (01/16/2025 3:30 PM EDT) Anatomical Region Laterality Modality Lower Extremities, Foot Right Radiogra phic Imaging 01/16/2025 3:30 PM EDT Narrative 01/16/2025 3:47 PM EDT [facility] [address] [place] [address] XRay Report Signed Patient: Colin Harmon MR#: [id number] 23 : 1960 Acct:[id number] Age/Sex: 64 / M ADM Date: 01/16/25 Loc: HO.HHCX Attending Dr: Marisela Link AIRWAYS CONTROL SPECIALIST Ordering Physician: Marisela Link NP Date of Service: 01/16/25 Procedure(s): XR foot RT min 3V Accession Number(s): [id number] cc: Marisela Link NP Reason for Exam: rigth heel pain EXAMINATION: XR FOOT 3 OR MORE VIEWS RIGHT HISTORY: right heel pain COMPARISON: There are no prior studies available for comparison. FINDINGS: Three views of the right foot are submitted. Osseous mineralization is normal. There is no fracture or dislocation. The joint spaces are preserved. There are calcaneal spurs at the plantar aspect and at the insertion of the Achilles tendon. The soft tissues are unremarkable. XR/XR foot RT min 3V IMPRESSION: Calcaneal spurs as described. Otherwise unremarkable examination of the right foot. Electronically signed by: Irvin Lassiter MD 01/16/2025 03:44 PM EDT Dictated By: Irvin Lassiter MD Signed By: <Electronically signed by Irvin Lassiter MD in OV> 01/16/25 1544 DD/ 1530 TD/TT: 01/16/25 1539 Bowling Ball Molder: Procedure Note Donotuseinterpreter, Image - 01/16/2025 [facility] [address] [place] [address] XRay Report Signed Patient: Cloin HarmonMR#: [id number] 23 : 9Acct:[id number] Age/Sex: 64 / MADM Date: 01/16/25 Loc: HO.HHCX Attending Dr: Marisela Link AIRWAYS CONTROL SPECIALIST Ordering Physician: Marisela Link NP Date of Service: 01/16/25 Procedure(s): XR foot RT min 3V Accession Number(s): [id number] cc: Marisela Link NP Reason for Exam: rigth heel pain EXAMINATION: XR FOOT 3 OR MORE VIEWS RIGHT HISTORY: right heel pain COMPARISON: There are no prior studies available for comparison. FINDINGS: Three views of the right foot are submitted. Osseous mineralization is normal. There is no fracture or dislocation. The joint spaces are preserved. There are calcaneal spurs at the plantar aspect and at the insertion of the Achilles tendon. The soft tissues are unremarkable. XR/XR foot RT min 3V IMPRESSION: Calcaneal spurs as described. Otherwise unremarkable examination of the right foot. Electronically signed by: Irvin Lassiter MD 01/16/2025 03:44 PM EDT Dictated By: Irvin Lassiter MD Signed By: <Electronically signed by Irvin Lassiter MD in OV> 01/16/25 1544 DD/ 1530 TD/TT: 01/16/25 1539 Bowling Ball Molder: Marisela Link NP IMG XR PROCEDURES Final Result * PSA, Total With Reflex to PSA, Free (01/16/2025 2:49 PM EDT) PSA,Total (Free>4and<10) 1.64 0.00 - 4.00 ng/mL [facility] Comment:A Free PSA was not p erformed: The percentage of Free PSA can be used to enhance the differentiation of prostate cancer from benign prostatic disease in subjects whose PSA levels are between 4.0 and 10.0 ng/mL. For subjects whose PSA levels are below 4.0 or above 10.0 ng/mL, the risk of prostate cancer is determined on the basis of the PSA alone. Therefore the % Free PSA is recommended only for those subjects whose PSA levels are between 4.0 and 10.0 ng/mL.PSA methodology: [employer]aton Al[employer] i ChemiluminescentMicroparticle Immunoassay (CMIA) 01/16/2025 2:49 PM EDT 01/16/2025 4:04 PM EDT us Marisela Link NP LAB BLOOD ORDERABLES Final Resul t [facility] [address] [place] [address] [phone] * CBC auto differential (01/16/2025 2:49 PM EDT) White Blood Count 8.8 4.8 - 10.8 X10*3/uL [facility] Red Blood Count 5.02 4.60 - 5.80 X10*6/uL [facility] Hemoglobin 14.7 14.0 - 18.0 g/dl [facility] Hematocrit 44.3 42.0 - 52.0 % [facility] Mean Corpuscular Volume 88.2 80.0 - 98.0 fL [facility] Mean Corpuscular Hemoglobin 29.3 27.0 - 33.0 pg [facility] Mean Corpuscular HGB Conc 33.2 31.0 - 36.0 g/dl [facility] Red Cell Distribution Width 14.6 11.0 - 16.0 % [facility] Platelet Count 191 160 - 400 X10*3/uL [facility] Mean Platelet Volume 12.0 9.4 - 12.4 fL [facility] Neutrophils Percent Auto 55.8 45 - 73 % [facility] Imm Gran Pct Auto 0.2 0.0 - 0.4 % [facility] Lymphocytes Percent Auto 30.7 20 - 40 % [facility] Monocytes Percent Auto 9.8 2 - 11 % [facility] Eosinophils Percent Auto 2.9 0 - 4 % [facility] Basophils Percent Auto 0.6 0 - 2 % [facility] NRBC Pct Auto 0.0 0.0 - 0.2 /100WBC [facility] Neutrophils Absolute Auto 4.9 2.0 - 8.3 x10*3/uL [facility] Imm Gran Abs Auto 0.02 0.00 - 0.03 X10*3/uL [facility] Lymphocytes Absolute Auto 2.7 1.2 - 4.9 X10*3/uL [facility] Monocytes Absolute Auto 0.9 0.1 - 1.2 X10*3/uL [facility] Eosinophils Absolute Auto 0.3 0.0 - 0.4 X10*3/uL [facility] Basophils Absolute Auto 0.1 0.0 - 0.2 X10*3/uL [facility] NRBC Abs Auto 0.000 0.0 - 0.012 X10*3/uL [facility] Blood Venous blood specimen / Unknown 01/16/2025 2:49 PM EDT 01/16/2025 4:04 PM EDT us Marisela Link AIRWAYS CONTROL SPECIALIST LAB BLOOD ORDERABLES Final Resul t [facility] [address] [place] [phone] * (ABNORMAL) Lipid Panel, Standard (05/03/2023 8:20 AM EST) Triglycerides 101 <150 mg/dL [facility] Comment:Desirable Triglyceri de: less than 150 mg/dLBorderline High Triglyceride 150-199 mg/dLHigh Triglyceride: 200-499 mg/dLVery High Triglyceride: greater than or equal to 5OO mg/dL Cholesterol 176 <200 mg/dL [facility] Comment:Desirable Cholestero l: less than 200 mg/dLBorderline High Cholesterol: 200-239 mg/dLHigh Cholesterol: greater than 239 mg/dL LDL Cholesterol Calculated 120(H) <100 mg/dL [facility] Comment:Desirable LDL: less than 100 mg/dLNear Optimal/Above Optimal LDL: 110- 129 mg/dLBorderline High LDL: 130-159 mg/dLHigh LDL: 160-189 mg/dLVery High LDL: greater than or equal to 190 mg/dL HDL Cholesterol 36(L) >40 mg/dL [facility] Comment:Desirable HDL: great er than 40 mg/dL Note: This HDL assay may give artificially low results in patients with liver disease. Blood Venous blood specimen / Unknown 05/03/2023 8:20 AM EST 05/03/2023 11:15 AM EST us Mary Rob STENOTYPE MACHINE OPERATOR LAB BLOOD ORDERABLES Final Resu lt [facility] [address] [place] [address] [phone] from Last 3 Months or Most Recently Relevant to Health [place] [id number] [facility] STANDARD D[facility] STAND ADULT Care Teams National Park Ranger Relationship Specialty Start Date End Date Dailla Kolb NP [address] [place] [address] PCP - General Family Medicine 11/20/23 Liyah Schroeder OD [address] [place] [address] Optometry 12/12/23
== END 2025-02-16 14:07 | disposition home or self-care (01) ==
LOC: HO.HPODS 12:51
PROVIDERS: PCP Nurse Practitioner Family; Visit Provider Student in an Organized Health Care Education/Training Program
DX: M72.2 Plantar fascial fibromatosis (principal)
CPT/HCPCS: 20550; 99203

== ENCOUNTER → 2025-02-16 12:50 | Outpatient (BNVA) | payer MEDICARE, MEDICAID, SELFPAY | PROVIDERS: PCP Nurse Practitioner Family; Visit Provider Student in an Organized Health Care Education/Training Program | DX: M72.2 Plantar fascial fibromatosis (principal) | CPT/HCPCS: 20550; 99202; J0665; J1100; J3301 ==

== ENCOUNTER 2025-03-10 14:02 | Outpatient (AMB) | payer MEDICARE, MEDICAID, SELFPAY ==
--- NOTE | 2025-03-10 14:11 | A.OFFVIS_ITS ---
Intake Visit Reasons: fu chronic hell pain Intake Note: injection helped for a few days . shooting pain up the center of the heal. pain medication is not helping icing and using pt Allergies No Known Allergies (No Known Allergies*) Allergy (Verified 09/27/23 10:40) HPI HPI fu chronic hell pain: Details: 64 y/o male seen today for f/u evaluation of right heel pain. He received a steroid injection to the right heel last visit, which he notes had helped his pain. He states the pain has slowly been returning. He purchased new balance shoes and is using dr. cevallos's heel cushions, both of which have been helping. He is no longer using a cane for ambulation. He is also performing exercises at home. [facility] Medical History (Updated 02/16/25 @ 21:43 by Ben Alvarez DPM) Bradycardia Personal history of nicotine dependence History of hepatitis C History of colon polyps Surgical History (Updated 06/22/23 @ 09:51 by Suad Hudson PA-C) History of tonsillectomy History of colonoscopy Family History (Updated 06/22/23 @ 09:58 by Suad Hudson PA-C) Mother Lung cancer, Onset Age: 72 Social History (Updated 06/22/23 @ 09:56 by Suad Hudson PA-C) Household Members Other:: Alcohol intake: never Patient Tobacco Use Status: Former Tobacco user Years Smoked: onset 14yo, 1ppd x 46yrs - 40pyh - quit 2021 Substance Use Type: Marijuana Current occupational status: disabled Physical Exam Extrem Other: *Bilateral Lower Extremity Focused Exam Vascular: DP/PT 2/4, CFT<3s to digits, TG warm to cool, no pedal edema Derm: No open wounds or lacerations. Neuro: Protective sensation grossly intact to bilateral lower extremities. MSK: Moderate Tenderness on palpation of the plantar medial calcaneal tubercle right heel, No Tenderness on palpation along the distal insertion of the Achilles tendon, 5 Degrees of ankle dorsiflexion on knee extension, 10 degrees of ankle dorsiflexion on knee flexion. Office Procedures AMB Flexor Tendon/Plantar POD Tendon Injection Details of AMB Procedure: Procedure: Steroid injection Location: right plantar fascia medial tubercle Medication: 1.5cc 0.5% bupivicaine, 1cc dexamethasone, 0.5cc kenalog? Description: The right foot was prepped using alcohol. A steroid injection was administered using sterile technique. The site was dressed using a band-aid. Post-procedure Instructions: The patient was instructed to apply ice to the injection site. The patient was advised to call the office if there are signs or symptoms of worsening pain, infection, or steroid flare. Tendon Injection POD1: - Plantar Fascia Injection All charges added?: Procedure code (CPT) selection complete Office Meds triamcinolone acetonide 40 mg/mL suspension for injection Performing Provider: Ben Alvarez DPM Performing Location: [facility] Administered by: Ben Alvarez DPM on 03/10/25 14:40 Dose Route Admin Location Dispensed Lot Number Expiration Date [facility] Floor Space Allocator 20 mg Tendon Sheath Inj. 1 mL [id number] [employer] Total Dispensed Waste 1 mL 50 % dexamethasone sodium phosphate 4 mg/mL injection solution Performing Provider: Ben Alvarez DPM Performing Location: [facility] Administered by: Ben Alvarez DPM on 03/10/25 14:40 Dose Route Admin Location Dispensed Lot Number Expiration Date [facility] Floor Space Allocator 4 mg Tendon Sheath Inj. 1 mL [id number] [employer] Total Dispensed Waste 1 mL 0 % bupivacaine (PF) 0.5 % (5 mg/mL) injection solution Performing Provider: Ben Alvarez DPM Performing Location: [facility] Administered by: Ben Alvarez DPM on 03/10/25 14:40 Dose Route Admin Location Dispensed Lot Number Expiration Date [facility] Floor Space Allocator 2 mL intra-articular 10 mL [id number] [employer] Total Dispensed Waste 10 mL 80 % Assessment & Plan Assessment & Plan (1) Plantar fasciitis of right foot: Code(s): M72.2 - Plantar fascial fibromatosis Category: Medical Plan: * Discussed etiology of the patient's foot pain. Differential diagnosis includes plantar fasciitis, neuritis, tendinitis * continue at home stretching and range of motion exercises including calf- stretches, frozen water bottle therapy, band-therapy. A hand-out was dispensed. * Administered steroid injection to the right heel today. Second injection * Discontinue meloxicam. Rx diclofenac. * Follow up in 3 weeks Orders: Orders AMB Flexor Tendon / Plantar Fascia Injection Today M72.2 - Plantar fascial fibromatosis Medications: New diclofenac sodium Take one tablet with food twice a day 75 mg PO BID 30 tabs 1RF pain M72.2 - Plantar fascial fibromatosis Discontinued meloxicam Take one tablet once a day for right heel pain Discontinued Reason: Change Referral Type 15 mg PO DAILY 14 tabs 0RF foot pain Coding Level of Care Code Est Pt Level 3 (85121) Diagnoses Plantar fasciitis of right foot M72.2 CPT Codes Tendon Injection - Tendon Injection POD1: - Plantar Fascia Injection ([id number])
--- OUTSIDE RECORDS SUMMARY | 2025-03-10 15:16 | XMS_ITS | Encounter Summary ---
Author Organization [employer] Address [address] [facility] [address] [place] [address] Care Team Providers Care Timber Management Technician Name Role Phone Mary Rob Primary Care Provider [phone] Dalila Kolb NP Primary Care Provider [phone] Liyah Schroeder OD Unavailable [phone] Reason for Visit * Reason Comments Med Refill Encounter Details Date Type Department Care Team (Late st Contact Info) Description 10/12/2022 Refill [facility] MED & PEDS [address] [place] [address] Saurabh Irizarry FNP Major depression with psychotic [...] Description 03/18/2025 2:30 PM EST Office Visit [facility] MEDICINE [address] [place] [address] Dalila Kolb NP [address] [place], [place] [phone] documented as of this encounter Visit Diagnoses Diagnosis Major depression with psychotic features (CMS/HCC) (HCC) documented in this encounter Additional Health Concerns Assessment Noted Time PHQ-9 Depression Total Score: 1 09/27/19 23 9:14 AM EDT documented as of this encounter Care Teams Timber Management Technician Relationship Specialty Start Date End Date Mary Rob FNP [address] [place] [address] PCP - General Family Medicine 10/16/22 11/19/23 Dalila Kolb NP [address] [place] [address] PCP - General Family Medicine 11/20/23 Liyah Schroeder OD [address] [place] [address] Optometry 12/12/23 documented as of this encounter
--- OUTSIDE RECORDS SUMMARY | 2025-03-10 15:16 | XMS_ITS | Encounter Summary ---
Author Organization [employer] Address [address] [facility] [address] [place] [address] Care Team Providers Care Battalion Fire Chief Name Role Phone Makeda Gaspar AUTO APPRAISER Primary Care Provider Ellen Mary Melendez AUTO APPRAISER Primary Care Provider [phone] Dalila Kolb NP Primary Care Provider [phone] Liyah Schroeder OD Unavailable [phone] Encounter Details Date Type Department Care Team (Late st Contact Info) Description 07/24/2022 Orders Only [facility] MED & PEDS [address] [place] [address] Cecelia Lopes LPN Social History Tobacco Use [...] Description 03/18/2025 2:30 PM EST Office Visit [facility] MEDICINE [address] [place] [address] Dalila Kolb NP [address] [place] [address] documented as of this encounter Procedures Procedure Name Priority Date/Time Associated Diagnosis Comments HEPATITIS C VIRAL RNA, QUANTITATIVE, REAL-TIME PCR Routine 05/03/2023 8:20 AM EST documented in this encounter Results * Hepatitis C Viral RNA, Quantitative, Real-Time PCR (05/03/2023 8:20 AM EST) Hepatitis C Viral Load <15 NOT DETECTED NOT DETECTED IU/mL [facility] HCV Log PCR <1.18 NOT DETECTED NOT DETECTED Log IU/mL [facility] Comment:This test was perfor med using Real-Time Polymerase ChainReaction.Reportable Range: 15 IU/mL to 100,000,000 IU/mL(1.18 Log IU/mL to 8.00 Log IU/mL).The analytical performance characteristics of thisassay have been determined by [facility].The modifications have not been cleared or approved bythe FDA. This assay has been validated pursuant to theCLIA regulations and is used for clinical purposes.For more information on this test, go to:http://education.takealot.com/faq/UUY85o8(This link is being provided for informational/educational purposes only.)THIS TEST WAS PERFORMED AT:[employer] [place] [phone] BEGUM MD 05/03/2023 8:20 AM EST 05/03/2023 12:17 PM EST us Mary PEÑALOZA LAB BLOOD ORDERABLES Final Resu lt [facility] [address] [place] [phone] documented in this encounter Visit Diagnoses Not on filedocumented in this encounter Care Teams Battalion Fire Chief Relationship Specialty Start Date End Date Makeda Gaspar FNP PCP - General Family Medicine 11/15/21 08/21/22 Mary Rob FNP [address] [place] [address] PCP - General Family Medicine 10/16/22 11/19/23 Dalila Kolb NP [address] [place], [place] [phone] PCP - General Family Medicine 11/20/23 Liyah Schroeder OD [address] [place] [address] Optometry 12/12/23 documented as of this encounter
--- OUTSIDE RECORDS SUMMARY | 2025-03-10 15:16 | XMS_ITS | Encounter Summary ---
Author Organization [employer] Address [address] [facility] 7t [place] [address] Care Team Providers Care Strategy Intern Name Role Phone Mary Rob Primary Care Provider [phone] Dalila Kolb NP Primary Care Provider [phone] Liyah Schroeder OD Unavailable Reason for Referral * Consultation (Routine) - Closed Specialty Diagnoses / Procedures Referred By Cortney castillo Referred To Contact Cardiothoracic Surgery Diagnoses History of tobacco use disorder Mary Rob FNP [address] [place] [address] Phone: tel: fax: [facility] [address] [place] [phone] Phone: tel: fax: Referral ID Status Reason Start Date Expiration Date V isits Requested Visits Authorized [id number] Closed Specialty Services Required 05/16/2023 05/15/2024 1 1 Encounter Details Date Type Department Care Team (Late st Contact Info) Description 05/16/2023 Orders Only [facility] MED & PEDS [address] [place] [address] Mary Rob FNP [address] [place] [address] History of tobacco use disorder (Primary Dx) [...] Description 03/18/2025 2:30 PM EST Office Visit [facility] MEDICINE [address] [place] [address] Dalila Kolb NP [address] [place] [address] Scheduled Referrals Name Type Priority Associated Diagnoses [...] documented as of this encounter Care Teams Strategy Intern Relationship Specialty Start Date End Date Mary Rob FNP [address] [place] [address] PCP - General Family Medicine 10/16/22 11/19/23 Dalila Kolb NP [address] [place] [address] PCP - General Family Medicine 11/20/23 Liyah Schroeder OD [address] [place] [address] Optometry 12/12/23 documented as of this encounter
--- OUTSIDE RECORDS SUMMARY | 2025-03-10 15:16 | XMS_ITS | Patient Health Record ---
Author Organization [facility] Address [address] [place] [address] Care Team Providers Care Beef Tagger Name Role Phone Justin Buenrostro MD Primary Care Provider ALFREDO Atwood Unavailable [phone] Reason For Referral No Information Medications Medication [...] Status Risk Notes Problem Chronic hepatitis C (452718250) Hepatitis C Chronic (070.54) Active confirmed Problem Gastritis (535.40) Active confirmed Problem Esophagitis (48337533) Esophagitis Erosive (530.19) Active confirmed Problem Disorder of function of stomach (475979659) Dyspepsia and other specified disorders of function of stomach (536.8) Active confirmed Problem Epigastric pain (66441451) Abdominal pain, epigastric (789.06) Active confirmed Problem Screening for malignant neoplasm of colon (684302834) Special screening for malignant neoplasms, intestine, unspecified (V76.50) Active confirmed Problem Hepatitis C (95664681) Hepatitis C (B19.20) Active confirmed Plan Of [...] [address] MEDICARE B KADIE CHINO [id number] MELINDA GRIFFIN Self - patient is the insured [place] MED[place] [address] [place] [address] [phone] [id number] MELINDA GRIFFIN Self - patient is the insured Medical (General) History Medical History History ICD Code depression Hep C Surgical History Surgery Date(Month/Year) tonsillectomy (youth) vesciectomy Hospitalization History Reason Date(Month/Year) heart problem 11/2013
--- OUTSIDE RECORDS SUMMARY | 2025-03-10 15:17 | XMS_ITS | Encounter Summary ---
Author Organization [employer] Address [address] [facility] 7t [place] [address] Care Team Providers Care Disability Program Navigator Name Role Phone Mary Rob Primary Care Provider [phone] Dalila Kolb NP Primary Care Provider [phone] Liyah Schroeder OD Unavailable [phone] Reason for Visit * Reason Comments Med Refill Encounter Details Date Type Department Care Team (Late st Contact Info) Description 04/22/2023 Refill [facility] MED & PEDS [address] [place] [address] Saurabh Irizarry FNP Major depression with psychotic [...] Description 03/18/2025 2:30 PM EST Office Visit [facility] MEDICINE [address] [place] [address] Dalila Kolb NP [address] [place] [address] documented as of this encounter Visit Diagnoses Diagnosis Major depression with psychotic features (CMS/HCC) (HCC) documented in this encounter Additional Health Concerns Assessment Noted Time PHQ-9 Depression Total Score: 1 09/27/19 23 9:14 AM EDT documented as of this encounter Care Teams Disability Program Navigator Relationship Specialty Start Date End Date Mary Rob FNP [address] [place] [address] PCP - General Family Medicine 10/16/22 11/19/23 Dalila Kolb NP [address] [place] [address] PCP - General Family Medicine 11/20/23 Liyah Schroeder OD [address] [place] [address] Optometry 12/12/23 documented as of this encounter
--- OUTSIDE RECORDS SUMMARY | 2025-03-10 15:17 | XMS_ITS | Encounter Summary ---
Author Organization [employer] Address [address] [facility] 7[address] [place] [address] Care Team Providers Care Production Graphic Designer Name Role Phone Mary Rob Primary Care Provider [phone] Dalila Kolb NP Primary Care Provider [phone] Liyah Schroeder OD Unavailable [phone] Reason for Visit * Reason Comments Med Refill Encounter Details Date Type Department Care Team (Late st Contact Info) Description 04/19/2023 Refill [facility] MED & PEDS [address] [place] [address] Saurabh Irizarry FNP Major depression with psychotic [...] 2:30 PM EST Office Visit [facility] MEDICINE [address] [place] [address] Dalila Kolb NP [address] [place] [address] documented as of this encounter Visit Diagnoses Diagnosis Major depression with psychotic features (CMS/HCC) (HCC) documented in this encounter Additional Health Concerns Assessment Noted Time PHQ-9 Depression Total Score: 1 09/27/19 23 9:14 AM EDT documented as of this encounter Care Teams Production Graphic Designer Relationship Specialty Start Date End Date Mary Rob FNP [address] [place] [address] PCP - General Family Medicine 10/16/22 11/19/23 Dalila Kolb NP [address] [place] [address] PCP - General Family Medicine 11/20/23 Liyah Schroeder OD [address] [place] [address] Optometry 12/12/23 documented as of this encounter
--- OUTSIDE RECORDS SUMMARY | 2025-03-10 15:17 | XMS_ITS | Clinical Summary ---
Author Organization [employer] Address [address] [facility] [address]t [place] [address] Care Team Providers Care Video Game Producer Name Role Phone Dalila Kolb NP Primary Care Provider [phone] Alexandre Liyah OD Unavailable [phone] Allergies No known active allergies Medications [...] continued psychiatric medication management. He should call [facility] with any questions or concerns. I have [...] with the plan. Severe recurrent major depression (CMS/[facility]) 06/17 Encounters Date Type Department Care Team Description 01/29/2025 2:00 PM EST Office Visit [facility] ADULT DENTAL [address] [place] [address] Prateek Griffith DMD 01/22/2025 Telephone [facility] MEDICINE [address] [place] [address] Dalila Kolb NP february01/21/2025 Results Follow-Up [facility] MEDICINE [address] [place] [address] Nalini Wolf, GISELE XR Foot 3+ Views Right 01/16/2025 2:20 PM EDT Office Visit [facility] WALK[facility]IN [facility] [address] [place] [address] Marisela Link NP Chronic heel pain, unspecified laterality (Primary Dx); Essential hypertension; Primary hypertension; Benign prostatic hyperplasia with urinary hesitancy 01/16/2025 Travel 01/02/2025 1:30 PM EDT Office Visit [facility] ADULT DENTAL [address] [place] [address] Prateek Griffith DMD 12/30/2024 Telephone [facility] MEDICINE [address] [place] [address] Dalila Kolb NP [employer] 12/22/2024 2:30 PM EDT Office Visit [facility] ADULT DENTAL [address] [place] [address] Prateek Griffith DMD 12/15/2024 10:00 AM EDT Office Visit [facility] ADULT DENTAL [address] [place] [address] Prateek Griffith DMD from Last 3 Months [...] Description 03/18/2025 2:30 PM EST Office Visit [facility] MEDICINE [address] [place], [place] [phone] Dalila Kolb NP [address] [place] [address] Health Maintenance Due Date Last Done Comments [...] Procedure Name Priority Date/Time Associated Diagnosis Comments AMB REFERRAL TO ORTHOPAEDIC SURGERY Routine 02/16/2025 Chronic heel pain, unspecified laterality DENTURE ADJUSTMENT Routine 01/29/2025 2: 00 PM [...] REGISTRATION Routine 12/15/2024 10: 00 AM EDT PANORAMIC RADIOGRAPHIC IMAGE Routine 10/28/2024 3:00 PM EDT PERIODIC ORAL EVALUATION - ESTABLISHED PATIENT Routine 10/28/2024 3:00 PM EDT LIPID PANEL, STANDARD Routine 05/03/2023 8:20 AM EST Hypertension, unspecified type Dietary counseling from Last 3 Months or Most Recently Relevant to Health Maintenance Results * Referral to Orthopaedic Surgery (02/16/2025) Marisela Link INTEGRATED CIRCUIT LAYOUT DESIGNER OUTPATIENT REFERRAL ORDERABLES F inal Result * XR Foot 3+ Views Right (01/16/2025 3:30 PM EDT) Anatomical Region Laterality Modality Lower Extremities, Foot Right Radiogra phic Imaging 01/16/2025 3:30 PM EDT Narrative 01/16/2025 3:47 PM EDT [address] [address] XRay Report Signed Patient: Colin Harmon MR#: [id number] 23 : 1960 Acct:[id number] Age/Sex: 64 / M ADM Date: 01/16/25 [facility] Dr: Marisela Link INTEGRATED CIRCUIT LAYOUT DESIGNER Ordering Physician: Marisela Link NP Date of Service: 01/16/25 Procedure(s): XR foot RT min 3V Accession Number(s): [id number] cc: Marisela Link NP Reason for Exam: [...] 01/16/25 1544 DD/ 1530 TD/TT: 01/16/25 1539 Asbestos Remover: Procedure Note Donotuseinterpreter, Image - 01/16/2025 [facility] [address] [place] [address] XRay Report Signed Patient: Colin HarmonMR#: [id number] 23 : 9Acct:[id number] Age/Sex: 64 / MADM Date: 01/16/25 [facility] Att[facility] Dr: Marisela Link INTEGRATED CIRCUIT LAYOUT DESIGNER Ordering Physician: Marisela Link NP Date of Service: 01/16/25 Procedure(s): XR foot RT min 3V Accession Number(s): [id number] cc: Marisela Link NP Reason for Exam: [...] 01/16/25 1544 DD/ 1530 TD/TT: 01/16/25 1539 Asbestos Remover: us Marisela Link NP IMG XR PROCEDURES Final Result * PSA, Total With Reflex to PSA, Free (01/16/2025 2:49 PM EDT) PSA,Total (Free>4and<10) 1.64 0.00 - 4.00 ng/mL [facility] Comment:A Free PSA was not [...] NP LAB BLOOD ORDERABLES Final Resul t [facility] [address] [place], [place] [phone] * CBC auto differential (01/16/2025 2:49 PM EDT) White Blood Count 8.8 4.8 - 10.8 X10*3/uL [facility] Red Blood Count 5.02 4.60 - 5.80 X10*6/uL [facility] Hemoglobin 14.7 14.0 - 18.0 g/dl [facility] Hematocrit 44.3 42.0 - 52.0 % [facility] Mean Corpuscular Volume 88.2 80.0 - 98.0 fL [facility] Mean Corpuscular Hemoglobin 29.3 27.0 - 33.0 pg [facility] Mean Corpuscular HGB Conc 33.2 31.0 - 36.0 g/dl [facility] Red Cell Distribution Width 14.6 11.0 - 16.0 % [facility] Platelet Count 191 160 - 400 X10*3/uL [facility] Mean Platelet Volume 12.0 9.4 - 12.4 fL [facility] Neutrophils Percent Auto 55.8 45 - 73 % [facility] Imm Gran Pct Auto 0.2 0.0 - 0.4 % [facility] Lymphocytes Percent Auto 30.7 20 - 40 % [facility] Monocytes Percent Auto 9.8 2 - 11 % [facility] Eosinophils Percent Auto 2.9 0 - 4 % [facility] Basophils Percent Auto 0.6 0 - 2 % [facility] NRBC Pct Auto 0.0 0.0 - 0.2 /100WBC [facility] Neutrophils Absolute Auto 4.9 2.0 - 8.3 x10*3/uL [facility] Imm Gran Abs Auto 0.02 0.00 - 0.03 X10*3/uL [facility] Lymphocytes Absolute Auto 2.7 1.2 - 4.9 X10*3/uL [facility] Monocytes Absolute Auto 0.9 0.1 - 1.2 X10*3/uL [facility] Eosinophils Absolute Auto 0.3 0.0 - 0.4 X10*3/uL [facility] Basophils Absolute Auto 0.1 0.0 - 0.2 X10*3/uL [facility] NRBC Abs Auto 0.000 0.0 - 0.012 X10*3/uL [facility] Blood Venous blood specimen / Unknown 01/16/2025 2:49 PM EDT 01/16/2025 4:04 PM EDT us Marisela Link NP LAB BLOOD ORDERABLES Final Resul t [facility] [address] [place] [address] [phone] * (ABNORMAL) Lipid Panel, Standard (05/03/2023 8:20 AM EST) Triglycerides 101 <150 mg/dL [facility] Comment:Desirable Triglyceri de: less than 150 mg/dLBorderline High Triglyceride 150-199 mg/dLHigh Triglyceride: 200-499 mg/dLVery High Triglyceride: greater than or equal to 5OO mg/dL Cholesterol 176 <200 mg/dL [facility] Comment:Desirable Cholestero l: less than 200 mg/dLBorderline High Cholesterol: 200-239 mg/dLHigh Cholesterol: greater than 239 mg/dL LDL Cholesterol Calculated 120(H) <100 mg/dL [facility] Comment:Desirable LDL: less than 100 mg/dLNear Optimal/Above Optimal LDL: 110- 129 mg/dLBorderline High LDL: 130-159 mg/dLHigh LDL: 160-189 mg/dLVery High LDL: greater than or equal to 190 mg/dL HDL Cholesterol 36(L) >40 mg/dL [facility] Comment:Desirable HDL: great er than 40 mg/dL Note: This HDL assay may give artificially low results in patients with liver disease. Blood Venous blood specimen / Unknown 05/03/2023 8:20 AM EST 05/03/2023 11:15 AM EST us Mary Rob MANAGER BEAUTY LAB BLOOD ORDERABLES Final Resu lt [facility] [address] [place] [address] [phone] from Last 3 Months or Most Recently Relevant to Health Maintenance Insurance [facility]ICARE [facility] ST[facility] ADULT Care Teams Video Game Producer Relationship Specialty Start Date End Date Dalila Kolb NP [address] [place] [address] PCP - General Family Medicine 11/20/23 Liyah Schroeder OD [address] [place] [address] Optometry 12/12/23
== END 2025-03-10 14:29 | disposition home or self-care (01) ==
LOC: HO.HPODS 14:03
PROVIDERS: PCP Nurse Practitioner Family; Visit Provider Student in an Organized Health Care Education/Training Program
DX: M72.2 Plantar fascial fibromatosis (principal)
CPT/HCPCS: 20550; 99213

== ENCOUNTER → 2025-03-10 14:02 | Outpatient (BNVA) | payer MEDICARE, MEDICAID, SELFPAY | PROVIDERS: PCP Nurse Practitioner Family; Visit Provider Student in an Organized Health Care Education/Training Program | DX: M72.2 Plantar fascial fibromatosis (principal) | CPT/HCPCS: 20550; 99212; J0665; J1100; J3301 ==